=== PATIENT | male | born 1960 | race Caucasian/White ===

== ENCOUNTER 2024-05-14 13:10 | Outpatient (RCR) | payer BC, SELFPAY ==
--- NOTE | 2024-05-14 16:28 | CTCCONSULT_ITS ---
[facility] [address] [place], [place] [address] Consultation Note Date: 05/14/2024 MR#: [id number] Name: WEN CHRISTIAN : 1960 Dx: Malignant neoplasm of rectum. C20 Attending physician. Antonio Watt MD Referring physician. Ramon Ivy MD [facility] Reason for consultation. Patient with pN2X rectal CA removed by transanal resection referred for postop adjuvant therapy. History of Present Illness: Patient is a 63-year-old gentleman initially followed in [place] for high-grade dysplasia in colonic adenoma, with numerous polyps removed, the larger 3 cm lesion in the rectum was biopsied which showed possible intramucosal adenocarcinoma. Was reevaluated at [facility] [place] by Dr. Ramon Ivy MD who underwent on February 27, 2024 excision of rectal tumor transanal endoscopic microsurgical approach including muscularis propria. Final path revealed invasive moderately to poorly differentiated adenocarcinoma arising from tubular adenoma carcinoma focally invading the musculus propria pT2. Lymphovascular invasion present tumor budding score intermediate margins negative for invasive carcinoma and adenoma. Mismatch repair proteins showed intact nuclear expression indicating low likelihood of microsatellite instability. Patient had preop CT scan 01/17/2024 which revealed few pulmonary nodules scar throughout lungs largest 1.1 x 0.9 cm, with no other suspicious areas in abdomen or pelvis. Mild nonspecific rectal wall thickening in the lower rectum with right kidney surgically absent. Spoke with Dr. Ivy today who recommended radiation therapy and chemo based on NCCN guidelines. Past Medical History: Prior right nephrectomy for early stage right kidney cancer [facility] 10 years ago no adjuvant therapy given; prior bronchitis ear infections heart murmur influenza Meds. Cialis levocetirizine Singulair testosterone injections Family history. 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 Social drinker non-smoker Review of Systems: Able to have erectile function with aid of Cialis and testosterone injections. He has regular bowel function Physical Exam: General: Well-appearing gentleman in no acute distress HEENT: Atraumatic normocephalic extraocular is intact no oral lesion no cervical or supraclavicular adenopathy CV: Chest clear to auscultation heart regular rate and rhythm ABD: Soft no organomegaly or tenderness EXT: No signs of clubbing or edema Assessment:1. pT2 NX rectal CA moderate to poorly differentiated with lymphovascular present perineural invasion margins negative. Removed by transanal approach, [facility] [place] [place] Dr. Ramon vIy. 2. Spoke with Dr. Ivy who recommends pelvis radiation and radiosensitizer such as 5-FU recommended by NCCN guidelines. 3. Shall order PET scan as recommended by radiologist to evaluate lesions in the chest. 4. If no sign of distant mets, 5000 cGy to the tumor site and rectum with lower dose to the adjacent node bearing signs will be planned. VMAT should assure reducing side effects with more effective treatment of the areas at risk. 5. Dr. Chambers medical oncologist will see patient soon. 6. Thank you very much for allowing me to evaluate this patient. Cc: Ramon Russ [facility] Antonio Watt MD Electronically signed by: Jerson Miller MD, DABR 05/14/2024 4:26 PM
== END 2024-05-16 23:59 | disposition home or self-care (01) ==
LOC: SCTC 13:10
PROVIDERS: PCP Nurse Practitioner Family; Referring Provider Colon & Rectal Surgery; Visit Provider Radiology Therapeutic Radiology
DX: C20 Malignant neoplasm of rectum (principal); Z90.49 Acquired absence of other specified parts of digestive tract
CPT/HCPCS: 99213; G0463

== ENCOUNTER 2024-05-21 09:03 | Outpatient (RCR) | payer BC, SELFPAY ==
--- NOTE | 2024-05-22 05:41 | CTCCONSULT_ITS ---
Patient: WEN CHRISTIAN : 1960 MR#: [id number] Page 3 of 4 CONSULTATION NOTE DATE OF CONSULTATION: 05/21/2024 NAME: WEN CHRISTIAN ACCOUNT: [id number] : 1960 AGE: 63 REFERRING PHYSICIAN: Wagner Contreras MD PRIMARY PHYSICIAN: Wagner Contreras MD REASON FOR VISIT: Follow-up on rectal cancer ONCOLOGY HISTORY: DIAGNOSIS: Malignant neoplasm of rectum [ICD10] C20 DATE OF DIAGNOSIS: 01/23/2024 adenocarcinoma of colon diagnosed on colonoscopy STAGE/TNM: T2 N0 M0(as no lymph nodes were seen by the surgeon which were normal and none were removed) TREATMENT HISTORY: Care?Plan Start?Date Cycle Day Intent HISTORY OF PRESENT ILLNESS: 63-year-old male is here to establish care for his rectal cancer. Patient underwent a robotic right nephrectomy with Dr. Sy for tumor about 10 years ago. Underwent recent colonoscopy which showed numerous polyps largest 3 cm lesion in the rectum was biopsied only which showed high-grade dysplasia with possible intramucosal adenocarcinoma. Patient had a CT scan which showed no evidence of metastatic disease. Patient had a small cyst in the liver. MRI pelvis showed a lesion on the left lateral aspect of the distal rectum 3 cm from the sphincter read as T3. No enlarged or suspicious lymph nodes on the read but surgeons are few visible less than 5 mm few.Left lateral tumor with central ulceration. 0n ultraSUund majority seems T1, with perhaps slight areaiin the middle of T2 involvemmnt. LocatiOn is adjacent to coceyx below lst valve of Renteria on left lateral zspcct of rectal well, about 1 cm ab0ve upper border of levator. No suspicious lymph nodes and no evidence of T3 involvement. So proce eded with transanal TAMIS excision (full thickness). Some bleeding from posterior area controlled with ligasure. Defect left open to heal by secondary intention. The specimen displays a 2.5 x 2.2 cm fungating lesion with elewted edges. The tumor IS disrupted at the left/anterior aspect, and abuts the inked gmen margin near the proximal aspect. The specimen is serially sectioned from proximal to distal. and entirely submitted as follows}:DIAGNOSIS: (Veri?ed) E TRANSANAL acrsron or: RECTAL LESION MINIMALLY INVASIVE A. Recrosremoro COLON POLYPS (BIOPSY): - Hypemlastic polyp(8)- l B. RECTAL LESION (TRANSANAL EXCISION): - Imasive moderately to poody differentiated adenocarcinOma. an?sing from tubular adenoma. - The carcinoma focally inwdes the musculan's propria (p12). - Lymphomscular invasion is present (Small vessel and large vessel). - Pen?neural invasion is present. - Tumor budding score: lntemrediate (5-3). - Margins are negative for imesive carcinoma and adenoma. Closest margin to carcinoma is 2 mm from the green lateral inked margin (opposite to the left/anterior half. near proximal).COMMENT: 1 WW % lmmunohistochemical stains (block B4) (or mismatch repair proteins (MLH1. PMSZ. MSH2. MSHS) show intact n uclear expression. indicating a low likelihood o?microsatellite instability. Radiation oncology note--- Patient is a 63 -year-old gentleman initially followed in [place] for high-grade dysplasia in colonic adenoma, with numerous polyps removed, the larger 3 cm lesion in the rectum was biopsied which showed possible intramucosal adenocarcinoma. Was reevaluated at [facility] [place] by Dr. Ramon Ivy MD who underwent on February 27, 2024 excision of rectal tumor transanal endoscopic microsurgical approach including muscularis propria. Final path revealed invasive moderately to poorly differentiated adenocarcinoma arising from tubular adenoma carcinoma focally invading the musculus propria pT2. Lymphovascular invasion present tumor budding score intermediate margins negative for invasive carcinoma and adenoma. Mismatch repair proteins showed intact nuclear expression indicating low likelihood of microsatellite instability. Patient had preop CT scan 01/17/2024 which revealed few pulmonary nodules scar throughout lungs largest 1.1 x 0.9 cm, with no other suspicious areas in abdomen or pelvis. Mild nonspecific rectal wall thickening in the lower rectum with right kidney surgically absent. Spoke with Dr. Ivy today who recommended radiation therapy and chemo based on NCCN guidelines. Past Medical History: Prior right nephrectomy for early stage right kidney cancer [facility] 10 years ago no adjuvant therapy given; prior bronchitis ear infections heart murmur in?uenza Meds. 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 Tobacco?Pack?per?Day:?0 Tobacco?Use?Years:?40 ETOH Use:?SOCIAL DRINKER PREFERENCE WHISKEY Drug?Note:?DENIES Social?History?Note:?LIVES?WITH? MEDICATIONS: 1. Cialis - 5 mg As directed 2. levocetirizine dihydrochloride - 5 mg Daily 3. Singulair - As directed 4. Xyosted - Weekly Medications Last Reconciled by Ludy Ames LVN on 05/19/2024 ALLERGIES: No Known Drug Allergies REVIEW OF SYSTEMS: A complete 14-point review of systems was performed and is negative except as noted in interval history. PHYSICAL EXAMINATION: VITAL SIGNS: Temperature?99, B/P?138/88, Height?71?inches, Oxygen?Saturation?95% Weight?224?lbs (Change?since?05/14/24:?0?lbs) PAIN: 0 - No pain ECOG Performance Status: 0 - Asymptomatic and fully active GENERAL APPEARANCE: Appears well, in no apparent distress, appropriately interactive. HEENT: Normocephalic, no temporal wasting, normal conjunctiva, no scleral icterus, normal hearing, lips without lesions, neck normal range of motion. CARDIOVASCULAR: Not assessed. PULMONARY: Normal respiratory effort, no respiratory distress or use of accessory muscles, speaking in full sentences, no tachypnea. EXTREMITIES: No pedal edema or cyanosis. SKIN: Normal skin appearance. NEUROLOGIC: Alert and oriented x4. PSHYCHIATRIC: Appropriate affect, mood normal, behavior normal, intact thought and speech. LABORATORY DATA: I have personally reviewed and interpreted each of the patient?s relevant lab tests, abnormal findings are below: Date ASSESSMENT/PLAN: Cancer T2 N0 M0 Patient had surgery in January 2024 Have recovered well Patient is very hesitant to get any chemotherapy or radiation at this time Patient want to follow PET CT scan and decide on treatment Will get new data to see any residual tumor CBC CMP PET CT scan material ordered still waiting for approval from the insurance on PET CT scan Discussed benefits of chemotherapy CBC CMP PET CT scan in detail testing CEA RETURN TO CLINIC: 1 to 2 weeks with the results BILLING AND COMPLIANCE: I reviewed external records from providers outside my specialty as summarized above. I spent a total of 50 minutes on this patient?s care on the day of their visit excluding time spent related to any billed procedures. This time includes time spent with the patient as well as time spent documenting in the medical record, reviewing patients records and tests, obtaining history, placing orders, communicating with other healthcare professionals, counseling the patient, family or caregiver, and/or care coordination for the diagnoses above. Electronically Signed by: Colten Chambers MD T: 5:39 AM CC: PCP: Wagner Cnotreras Referring: Wagner Contreras This document was completed utilizing speech recognition software. Grammatical errors, random word insertions, pronoun errors, and incomplete sentences are an occasional consequence of this system due to software limitations, ambient noise, and hardware issues. Any formal questions or concerns about the content, text or information contained within the body of this dictation should be directly addressed to the provider for clarification.
== END 2024-06-13 23:59 | disposition home or self-care (01) ==
LOC: SCTC 09:03
PROVIDERS: PCP Nurse Practitioner Family; Referring Provider Nurse Practitioner Family; Visit Provider Internal Medicine Hematology & Oncology
DX: C20 Malignant neoplasm of rectum (principal)
CPT/HCPCS: 99213; G0463

== ENCOUNTER → 2024-05-30 | Outpatient (CLI) | payer BC, SELFPAY ==
[2024-05-30 08:55] LABS: Misc Send Out* See Sep Rpt
[2024-05-30 09:23] LABS: Basophils # (Auto) 0.1 Thou/mm3 (0.0-0.2); Basophils % (Auto) 1 % (0-2.5); Eosinophils # (Auto) 0.1 Thou/mm3 (0.0-0.5); Eosinophils % (Auto) 2 % (0-10); Hematocrit 48.9 % (41.0-53.0); Hemoglobin 16.6 g/dL (13.5-16.0); Immature Granulocytes % (Auto) 0 % (0-0); Immature Granulocytes Auto 0.02 Thou/mm3 (0.00-0.00); Lymphocytes # (Auto) 3.2 Thou/mm3 (1.0-4.8); Lymphocytes % (Auto) 45 % (10-50); Mean Corpuscular HGB Conc 33.9 g/dl (31.0-37.0); Mean Corpuscular Hemoglobin 30.2 pg (25.0-35.0); Mean Corpuscular Volume 89 fL (80-100); Monocytes # (Auto) 0.6 Thou/mm3 (0.0-0.8); Monocytes % (Auto) 8 % (0-12); Neutrophils # (Auto) 3.2 Thou/mm3 (1.8-7.7); Neutrophils % (Auto) 44 % (37-80); Nucleated Red Blood Cell % 0 /100 WBC (0); Platelet Count 283 Thou/mm3 (140-440); RDW Standard Deviation 43.3 fL (35.1-43.9); Red Blood Count 5.49 Miln/mm3 (4.50-5.90); White Blood Count 7.2 Thou/mm3 (3.8-10.6)
[2024-05-30 09:35] LABS: Carcinoembryonic Antigen 1.7 ng/mL (0.0-5.0)
[2024-05-30 09:38] LABS: Alanine Aminotransferase 22 U/L (10-49); Albumin/Globulin Ratio 2.2 (1.2-2.2); Alkaline Phosphatase 65 U/L (46-116); Anion Gap 8 (7-16); Aspartate Amino Transferase 19 U/L (0-34); BUN/Creatinine Ratio 14 Ratio (12-20); Bilirubin,Total 0.5 mg/dL (0.3-1.2); Blood Urea Nitrogen 17 mg/dL (9-23); Calcium 10.5 mg/dL (8.3-10.6); Calcium (Corrected) 10.5 mg/dL (8.5-10.1); Carbon Dioxide 28.8 mMol/L (20.0-31.0); Chloride 105 mMol/L (98-107); Creatinine (Component) 1.2 mg/dL (0.6-1.3); Globulin 2.3 gm/dL (2.3-3.5); Glucose 91 mg/dL (74-106); Osmolality,Calculated 284 (275-295); Potassium 4.6 mMol/L (3.4-5.1); Sodium 142 mMol/L (136-145); Total Protein 7.3 gm/dL (5.7-8.2); eGFR > 60 See Note
== END | disposition home or self-care (01) ==
PROVIDERS: PCP Specialist; Referring Provider Internal Medicine Hematology & Oncology; Visit Provider Internal Medicine Hematology & Oncology
DX: C20 Malignant neoplasm of rectum (principal)
CPT/HCPCS: 36415; 80053; 82378; 85025

== ENCOUNTER → 2024-06-09 | Outpatient (CLI) | payer BC, SELFPAY ==
--- NOTE | 2024-06-09 14:00 | XR_ITS ---
EXAMINATION: PET/CT FUSION SKULL TO THIGH EXAM DATE AND TIME: June 09, [address] urogram January 23, 2017 Indications: Diagnosis staging prior to treatment: Rectal cancer CTDI:vol (mGy) 8.68 DLP: (mGycm) 900.59 PROCEDURE: 16.26 mCi FDG was administered intravenously To allow for distribution and uptake of radiotracer, the patient was allowed to rest quietly in a shielded room. Imaging was performed on an integrated 16-slice PET/CT scanner, with scanning from the skull base to the mid thigh. Serum blood glucose at the time of the injection was measured 102 mg/dL. CT scanning was performed without oral or intravenous contrast material. FINDINGS: Head and Neck: There is no gurpreet hypermetabolism in the neck. The visualized portions of the brain are normal in appearance on CT. Chest: 15 mm spiculated non hypermetabolic pulmonary nodule right upper lobe image 79 8 mm pulmonary nodule non hypermetabolic right lower lobe image 114 Abdomen and Pelvis: There is no gurpreet hypermetabolism in retroperitoneal or pelvic chains. The spleen is normal in size and FDG avidity. Absent right kidney Musculoskeletal: Marrow uptake is within normal range. IMPRESSION: Noncalcified pulmonary nodules as above suspicious for pulmonary nodular metastatic disease or lung carcinoma, recommend high-resolution CT chest without contrast follow-up
== END | disposition home or self-care (01) ==
PROVIDERS: PCP Nurse Practitioner Family; Referring Provider Radiology Therapeutic Radiology; Visit Provider Radiology Therapeutic Radiology
DX: R91.8 Other nonspecific abnormal finding of lung field (principal); C20 Malignant neoplasm of rectum
CPT/HCPCS: 78815; A9552

== ENCOUNTER → 2024-06-14 | Outpatient (CLI) | payer BC, SELFPAY ==
--- NOTE | 2024-06-14 08:00 | XR_ITS ---
Examination: MRI pelvis with intravenous contrast. MRI pelvis without intravenous contrast. Date and time of exam: June 14, 2024 0833 hrs. Indications: History kidney surgery nephrectomy 2017, history rectal cancer diagnosis March 2024 Technique: Multiple axial, sagittal and coronal sections of the pelvis obtained. Transverse images, TR 6020, TE 107. T1 weighted transverse images, TR 582, TE 9.5. T2-weighted sagittal images, TR 4000, TE 105. T2-weighted sagittal images, TR 4000, TE 5. Coronal images, TR 4210, TE 107. Axial and coronal images are obtained post 5 cc intravenous injection, gadolinium. Findings: No common iliac and external iliac internal iliac or common femoral significant adenopathy No free fluid in the pelvis Normal seminal vesicles Transverse prostate dimension 4.5 cm Postcontrast images demonstrate mild thickening of the right lateral rectal wall, axial image 22, measuring 10 mm, clinical correlation advised Fat plane remains at the anterior margin of the rectosigmoid, no perirectal lymph nodes Urinary bladder intact Normal osseous signal Impression: No pelvic lymphadenopathy Mild thickening of the right lateral rectal wall, axial image 22 postcontrast, measuring 10 mm, clinical correlation advised
== END | disposition home or self-care (01) ==
LOC: SMRI 07:36
PROVIDERS: PCP Nurse Practitioner Family; Referring Provider Internal Medicine Hematology & Oncology; Visit Provider Internal Medicine Hematology & Oncology
DX: K62.89 Other specified diseases of anus and rectum (principal); C20 Malignant neoplasm of rectum
CPT/HCPCS: 72197; A9579

== ENCOUNTER 2024-06-18 10:50 | Outpatient (RCR) | payer BC, SELFPAY ==
--- NOTE | 2024-06-22 23:53 | CTCFLWUP_ITS ---
Patient: WEN CHRISTIAN : 1960 Page 3 of 4 FOLLOW UP NOTE DATE OF SERVICE: 06/18/2024 NAME: WEN CHRISTIAN ACCOUNT: [id number] : 1960 AGE: 63 INTERVAL HISTORY: Patient is here to follow-up on his results. Patient is doing well and have no complaints ONCOLOGY HISTORY: DIAGNOSIS: Malignant neoplasm of rectum [ICD10] C20 DATE OF DIAGNOSIS: 01/23/2024 adenocarcinoma of colon diagnosed on colonoscopy STAGE/TNM: T2 Nx M0(as no lymph nodes were seen by the surgeon which were normal and none were removed) TREATMENT HISTORY: Care?Plan Start?Date Cycle Day Intent HISTORY OF PRESENT ILLNESS: 63-year-old male is here to establish care for his rectal cancer. Patient underwent a robotic right nephrectomy with Dr. Sy for tumor about 10 years ago. Underwent recent colonoscopy which showed numerous polyps largest 3 cm lesion in the rectum was biopsied only which showed high-grade dysplasia with possible intramucosal adenocarcinoma. Patient had a CT scan which showed no evidence of metastatic disease. Patient had a small cyst in the liver. MRI pelvis showed a lesion on the left lateral aspect of the distal rectum 3 cm from the sphincter read as T3. No enlarged or suspicious lymph nodes on the read but surgeons are few visible less than 5 mm few.Left lateral tumor with central ulceration. 0n ultraSUund majority seems T1, with perhaps slight areaiin the middle of T2 involvemmnt. LocatiOn is adjacent to coceyx below lst valve of Renteria on left lateral zspcct of rectal well, about 1 cm ab0ve upper border of levator. No suspicious lymph nodes and no evidence of T3 involvement. So proce eded with transanal TAMIS excision (full thickness). Some bleeding from posterior area controlled with ligasure. Defect left open to heal by secondary intention. The specimen displays a 2.5 x 2.2 cm fungating lesion with elewted edges. The tumor IS disrupted at the left/anterior aspect, and abuts the inked gmen margin near the proximal aspect. The specimen is serially sectioned from proximal to distal. and entirely submitted as follows}:DIAGNOSIS: (Veri?ed) E TRANSANAL acrsron or: RECTAL LESION MINIMALLY INVASIVE A. Recrosremoro COLON POLYPS (BIOPSY): - Hypemlastic polyp(8)- l B. RECTAL LESION (TRANSANAL EXCISION): - Imasive moderately to poody differentiated adenocarcinOma. an?sing from tubular adenoma. - The carcinoma focally inwdes the musculan's propria (p12). - Lymphomscular invasion is present (Small vessel and large vessel). - Pen?neural invasion is present. - Tumor budding score: lntemrediate (5-3). - Margins are negative for imesive carcinoma and adenoma. Closest margin to carcinoma is 2 mm from the green lateral inked margin (opposite to the left/anterior half. near proximal).COMMENT: 1 WW % lmmunohistochemical stains (block B4) (or mismatch repair proteins (MLH1. PMSZ. MSH2. MSHS) show intact n uclear expression. indicating a low likelihood o?microsatellite instability. Radiation oncology note--- Patient is a 63 -year-old gentleman initially followed in [place] for high-grade dysplasia in colonic adenoma, with numerous polyps removed, the larger 3 cm lesion in the rectum was biopsied which showed possible intramucosal adenocarcinoma. Was reevaluated at [facility] [place] by Dr. Ramon Ivy MD who underwent on February 27, 2024 excision of rectal tumor transanal endoscopic microsurgical approach including muscularis propria. Final path revealed invasive moderately to poorly differentiated adenocarcinoma arising from tubular adenoma carcinoma focally invading the musculus propria pT2. Lymphovascular invasion present tumor budding score intermediate margins negative for invasive carcinoma and adenoma. Mismatch repair proteins showed intact nuclear expression indicating low likelihood of microsatellite instability. Patient had preop CT scan 01/17/2024 which revealed few pulmonary nodules scar throughout lungs largest 1.1 x 0.9 cm, with no other suspicious areas in abdomen or pelvis. Mild nonspecific rectal wall thickening in the lower rectum with right kidney surgically absent. Spoke with Dr. Ivy today who recommended radiation therapy and chemo based on NCCN guidelines. 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 Tobacco?Pack?per?Day:?0 Tobacco?Use?Years:?40 ETOH Use:?SOCIAL DRINKER PREFERENCE WHISKEY Drug?Note:?DENIES Social?History?Note:?LIVES?WITH? MEDICATIONS: 1. Cialis - 5 mg As directed 2. levocetirizine dihydrochloride - 5 mg Daily 3. multivitamin - 1 Gum Daily 4. Singulair - As directed 5. Xyosted - Weekly Medications Last Reconciled by Annabelle Taylor MA on 06/18/2024 ALLERGIES: No Known Drug Allergies REVIEW OF SYSTEMS: A complete 14-point review of systems was performed and is negative except as noted in interval history. PHYSICAL EXAMINATION: VITAL SIGNS: PAIN: 0 - No pain ECOG Performance Status: 0 - Asymptomatic and fully active GENERAL APPEARANCE: Appears well, in no apparent distress, appropriately interactive. HEENT: Normocephalic, no temporal wasting, normal conjunctiva, no scleral icterus, normal hearing, lips without lesions, neck normal range of motion. CARDIOVASCULAR: Not assessed. PULMONARY: Normal respiratory effort, no respiratory distress or use of accessory muscles, speaking in full sentences, no tachypnea. EXTREMITIES: No pedal edema or cyanosis. SKIN: Normal skin appearance. NEUROLOGIC: Alert and oriented x4. PSHYCHIATRIC: Appropriate affect, mood normal, behavior normal, intact thought and speech. LABORATORY DATA: I have personally reviewed and interpreted each of the patient?s relevant lab tests, abnormal findings are below: Date 05/30/24 ??CEA?(O*)?(ng/ml) 1.7 ASSESSMENT/PLAN: Rectal cancer T2 N0 M0 Patient had surgery in January 2024 Have recovered well I reviewed PET CT scan with Mr. Christian and MRI of the pelvis No evidence of tumor N/A TER RA test negative showing likely no minimal residual disease Patient was referred for chemo RT as no lymph nodes could be removed and margins were close Patient also had perivascular and perineural invasion and surgeon recommended chemo RT and adjuvant setting Will place chemotherapy orders ORDERS: Chemo orders CBC CMP RETURN TO CLINIC: 6 weeks BILLING AND COMPLIANCE: I reviewed external records from providers outside my specialty as summarized above. I spent a total of 50 minutes on this patient?s care on the day of their visit excluding time spent related to any billed procedures. This time includes time spent with the patient as well as time spent documenting in the medical record, reviewing patients records and tests, obtaining history, placing orders, communicating with other healthcare professionals, counseling the patient, family or caregiver, and/or care coordination for the diagnoses above. Electronically Signed by: Colten Chambers MD T: 11:51 PM CC: PCP: Wagner Contreras Referring: Wagner Contreras This document was completed utilizing speech recognition software. Grammatical errors, random word insertions, pronoun errors, and incomplete sentences are an occasional consequence of this system due to software limitations, ambient noise, and hardware issues. Any formal questions or concerns about the content, text or information contained within the body of this dictation should be directly addressed to the provider for clarification.
--- NOTE | 2024-07-04 08:24 | CTCTXPLN_ITS ---
[facility] [address] [place], [place] [address] Physician Clinical Treatment Planning Note Date of Service: 07/04/2024 Name: WEN ANAHI ChanelB.: 1960 The patient has agreed to proceed with Radiation therapy. Tests and supporting medical records were interpreted to assist in defining the tumor location and extent of disease. Further imaging will be necessary to contour and delineate the volume to which the XRT will be provided. A. Treatment Intent: Curative B. Modality: 10 MV C. Requested Technique: VMAT D. Treatment Site: Pelvis E. Critical structures to be contoured on plan: F. In order to accomplish this plan, I am ordering/Prescribing the followin. Simulations (s) will be performed to accomplish a reproducible treatment position, to determine optimal treatment portals/beam arrangements, to design beam modifying devices and verify treatment portals on patient prior to the commencement of Radiation Therapy. Vac-Rebeca 2. Devices; for immobilization and beam shapin. CT Guidance for placement of XRT villegas Scan area: 4. Portal images Frequency: 5. Invivo transit dose measurement once per week on all VMAT patients. 6. Special Physics Consult Requested for: 7. Other requests: Special procedure chemoradiation G. Dose Objectives: Curative Electronically signed by: Jerson Miller M.D. 07/04/2024 8:22 AM
--- NOTE | 2024-07-04 08:27 | CTCTXPLNST_ITS ---
Radiation Oncology Treatment Planning Sheet Name: WEN CHRISTIAN MR#: [id number] : 1960 Dx: C20 Malignant neoplasm of rectum Date of Service: 07/04/2024 Account #: ?? Pt Treatment Intent: curative palliative other: Stage: Procedure CPT # Ordered Spec. Procedure 94014 1 Molina Complex (set-up) 19961 Pelvis 1 Molina Simple 50832 IMRT Plan 37127 1 MLC Devices VMAT 10367 3 Molina 3 D 26168 TRTMT dev Complex 78210 Vac-Rebeca 1 TRTMT dev simple 94007 Basic Philip 84358 9 Special Dosimetry 19288 Spec Physics 78699 Port Films 51913 SRS Cranial/1FX 48189 SBR 5 FX or Less /ex: 5 = 5 fx 70722 IMRT Simple 36482 5000 25 IMRT Complex 84942 IGRT 17435 22 Rad del com 6-10 67278 Rad del com 11-19 42959 Cont Med Physics 16965 5 Treatment Planning 58486 1 Rad del com 20 mev 50209 Rad del inter 6-10 75649 Rad del inter 11-19 16660 Rad del simple 6-10 30594 Rad del simple 11-19 20117 Special Port Plan 45356 TRTMT dev inter 66669 Isodose Complex 77642 Isodose simple 93673 Resp Motion Mgmt Simulation 20416 Placement of Fiducial Markers 77299 Electronically Signed By: Jerson Miller MD, DABR 07/04/2024 8:24 AM
== END 2024-07-14 23:59 | disposition home or self-care (01) ==
LOC: SCTC 10:50
PROVIDERS: PCP Nurse Practitioner Family; Referring Provider Nurse Practitioner Family; Visit Provider Internal Medicine Hematology & Oncology
DX: C20 Malignant neoplasm of rectum (principal)
CPT/HCPCS: 99212; G0463

== ENCOUNTER 2024-09-22 13:21 | Outpatient (RCR) | payer BC, SELFPAY ==
--- NOTE | 2024-09-25 07:03 | CTCFLWUP_ITS ---
Patient: WEN CHRISTIAN : 1960 Page 3 of 6 FOLLOW UP NOTE DATE OF SERVICE: 09/22/2024 NAME: WEN CHRISTIAN ACCOUNT: [id number] : 1960 AGE: 63 INTERVAL HISTORY: Chief Complaint Follow-up for lung nodule biopsy results, discussion of kidney cancer metastasis to lung History of Present Illness Amado Smith is a 63-year-old male with a history of renal cell carcinoma status post nephrectomy 12-15 years ago and recent rectal cancer status post surgery, presenting for follow-up of lung nodules discovered on imaging. The patient was recently found to have multiple lung nodules on CT scan performed in January 2024. A biopsy of a right lung nodule was positive for carcinoma, with immunohistochemistry suggesting metastasis from renal primary. The patient reports no specific symptoms related to these nodules. He had pr eviously undergone a robotic nephrectomy for renal tumor approximately 10-12 years ago. Regarding his rectal cancer history, the patient reports he has recovered well from the facial surgery. He declined recommended chemoradiation treatment following surgery, as his Netera test was negative. A recent colonoscopy revealed numerous polyps. The patient expresses a preference to avoid putting poison in my body unless absolutely necessary, referring to chemotherapy. The patient is planning a trip to [place] for a surprise birthday constitution party at the end of the month and will return in early October. He reports no new symptoms or concerns at this time. ONCOLOGY HISTORY:?[facility] On[facility] Hx? DIAGNOSIS: Malignant neoplasm of rectum [ICD10] C20 DATE OF DIAGNOSIS: 01/23/2024 adenocarcinoma of colon diagnosed on colonoscopy STAGE/TNM: T2 Nx M0(as no lymph nodes were seen by the surgeon which were normal and none were removed) TREATMENT HISTORY: Care?Plan Start?Date Cycle Day Intent Pembrolizumab?alone 09/22/2024 1 21 Palliative HISTORY OF PRESENT ILLNESS: 63-year-old male is here to establish care for his rectal cancer. Patient underwent a robotic right nephrectomy with Dr. Sy for tumor about 10 years ago. Underwent recent colonoscopy which showed numerous polyps largest 3 cm lesion in the rectum was biopsied only which showed high-grade dysplasia with possible intramucosal adenocarcinoma. Patient had a CT scan which showed no evidence of metastatic disease. Patient had a small cyst in the liver. MRI pelvis showed a lesion on the left lateral aspect of the distal rectum 3 cm from the sphincter read as T3. No enlarged or suspicious lymph nodes on the read but surgeons are few visible less than 5 mm few.Left lateral tumor with central ulceration. 0n ultraSUund majority seems T1, with perhaps slight areaiin the middle of T2 involvemmnt. LocatiOn is adjacent to coceyx below lst valve of Renteria on left lateral zspcct of rectal well, about 1 cm ab0ve upper border of levator. No suspicious lymph nodes and no evidence of T3 involvement. So proce eded with transanal TAMIS excision (full thickness). Some bleeding from posterior area controlled with ligasure. Defect left open to heal by secondary intention. The specimen displays a 2.5 x 2.2 cm fungating lesion with elewted edges. The tumor IS disrupted at the left/anterior aspect, and abuts the inked gmen margin near the proximal aspect. The specimen is serially sectioned from proximal to distal. and entirely submitted as follows}:DIAGNOSIS: (Veri?ed) E TRANSANAL acrsron or: RECTAL LESION MINIMALLY INVASIVE A. Recrosremoro COLON POLYPS (BIOPSY): - Hypemlastic polyp(8)- l B. RECTAL LESION (TRANSANAL EXCISION): - Imasive moderately to poody differentiated adenocarcinOma. an?sing from tubular adenoma. - The carcinoma focally inwdes the musculan's propria (p12). - Lymphomscular invasion is present (Small vessel and large vessel). - Pen?neural invasion is present. - Tumor budding score: lntemrediate (5-3). - Margins are negative for imesive carcinoma and adenoma. Closest margin to carcinoma is 2 mm from the green lateral inked margin (opposite to the left/anterior half. near proximal).COMMENT: 1 WW % lmmunohistochemical stains (block B4) (or mismatch repair proteins (MLH1. PMSZ. MSH2. MSHS) show intact n uclear expression. indicating a low likelihood o?microsatellite instability. Radiation oncology note--- Patient is a 63 -year-old gentleman initially followed in [place] for high-grade dysplasia in colonic adenoma, with numerous polyps removed, the larger 3 cm lesion in the rectum was biopsied which showed possible intramucosal adenocarcinoma. Was reevaluated at [facility] [place]. Ramon Ivy MD who underwent on February 27, 2024 excision of rectal tumor transanal endoscopic microsurgical approach including muscularis propria. Final path revealed invasive moderately to poorly differentiated adenocarcinoma arising from tubular adenoma carcinoma focally invading the musculus propria pT2. Lymphovascular invasion present tumor budding score intermediate margins negative for invasive carcinoma and adenoma. Mismatch repair proteins showed intact nuclear expression indicating low likelihood of microsatellite instability. Patient had preop CT scan 01/17/2024 which revealed few pulmonary nodules scar throughout lungs largest 1.1 x 0.9 cm, with no other suspicious areas in abdomen or pelvis. Mild nonspecific rectal wall thickening in the lower rectum with right kidney surgically absent. Spoke with Dr. Ivy today who recommended radiation therapy and chemo based on NCCN guidelines. OTHER MEDICAL HISTORY/CONDITIONS: HEART MURMUR SEASONAL ALLERGIES BRONCHITIS HERNIA NEPHRECTOMY FLU CHICKEN POX HAY FEVER EAR INFECTIONS ROTATOR CUFF HERNIA RIGHT NEPHRECTOMY RIGHT 8 YEARS AGO RIGHT EAR SX WITH DR ELDRIDGE FAMILY HISTORY: Father:?FATHER?BRAIN?CANCER Cancer History:?COLON CANCER DX 01/2024, LIP SX SQUAMOUS CELL YEARS AGO SOCIAL HISTORY: Occupational?History:?RETIRED [employer], [employer] Education?Level:?College Graduate, 2 year degree Marital?Status:? Tobacco?Pack?per?Day:?0 Tobacco?Use?Years:?40 ETOH Use:?SOCIAL DRINKER [employer]REF[employer]ENCE [employer]KEY Drug?Note:?DENIES Social?History?Note:?LIVES?WITH? MEDICATIONS: 1. Cialis - 5 mg As directed 2. levocetirizine dihydrochloride - 5 mg Daily 3. multivitamin - 1 Gum Daily 4. Singulair - As directed 5. Xyosted - Weekly?Palabra Meds? Medications Last Reconciled by Annabelle Taylor MA on 06/18/2024 ALLERGIES: No Known Drug Allergies REVIEW OF SYSTEMS: A complete 14-point review of systems was performed and is negative except as noted in interval history. PHYSICAL EXAMINATION:?[facility] PE? VITAL SIGNS: B/P?151/81, Oxygen?Saturation?96% Weight?220?lbs PAIN: 0 - No pain ECOG Performance Status: 0 - Asymptomatic and fully active GENERAL APPEARANCE: Appears well, in no apparent distress, appropriately interactive. HEENT: Normocephalic, no temporal wasting, normal conjunctiva, no scleral icterus, normal hearing, lips without lesions, neck normal range of motion. CARDIOVASCULAR: Not assessed. PULMONARY: Normal respiratory effort, no respiratory distress or use of accessory muscles, speaking in full sentences, no tachypnea. EXTREMITIES: No pedal edema or cyanosis. SKIN: Normal skin appearance. NEUROLOGIC: Alert and oriented x4. PSHYCHIATRIC: Appropriate affect, mood normal, behavior normal, intact thought and speech. Laboratory, Imaging, and Diagnostic Test Results - Biopsy of right lung nodule: Positive for carcinoma, consistent with metastasis from renal primary - Immunohistochemistry results: - Positive: Goodman-CK, RCC, CD10, Pax8 - Negative: TTF1, CK7, CK20, Melan-A, SOX10, NKX3.1 - CT scan (January 2024): - Right lun.9 cm nodule with adjacent small satellite nodule, speculations surrounding - Left upper lobe: Irregular 0.9 x 0.7 cm nodule - Right middle lobe: Subpleural triangular nodular opacity, possibly atelectasis - Right lower lobe: Solid non-calcified 0.9 x 0.7 cm nodule - PET scan: - 15 mm non-hypermetabolic mass noted - Netera test for rectal cancer: Negative LABORATORY DATA: I have personally reviewed and interpreted each of the patient?s relevant lab tests, abnormal findings are below: Date 05/30/24 ??WHITE?BLOOD?COUNT?(Thou/mm3) 7.2 ??RED?BLOOD?COUNT?(Miln/mm3) 5.49 ??HEMOGLOBIN?(gm/dl) 16.6?H ??HEMATOCRIT?(%) 48.9 ??PLATELET?COUNT?(Thou/mm3) 283 ??NEUTROPHILS?%,?AUTO?(%) 44 ??LYMPH?%,?AUTO?(%) 45 ??NEUTROPHILS,?AUTO?(Thou/mm3) 3.2 ??GLUCOSE,RANDOM?(mg/dL) 91 ??BLOOD?UREA?NITROGEN?(mg/dL) 17 ??CREATININE?(mg/dL) 1.20 ??SODIUM?(mmol/L) 142 ??POTASSIUM?(mmol/L) 4.6 ??CHLORIDE?(mmol/L) 105 ??CrCl?(CandG)?(ml/min) 77.15 ??AST/SGOT?(Unit/L) 19 ??ALT/SGPT?(Unit/L) 22 ??ALKALINE?PHOSPHATASE?(Unit/L) 65 ??BILIRUBIN,?TOTAL?(mg/dL) 0.5 ??PROTEIN?TOTAL?(gm/dl) 7.3 ??ALBUMIN,?SERUM?(gm/dl) 5.0?H ??GLOBULIN?(gm/dl) 2.3 ??ALBUMIN/GLOBULIN?RATIO 2.2 ??CALCIUM,?SERUM?(mg/dL) 10.5 ??CALCIUM?SERUM?(CORRECTED)?(mg/dL) 10.5?H ??CEA?(O*)?(ng/ml) 1.7 ASSESSMENT/PLAN: Amado Smith, 63-year-old male with history of renal cell carcinoma s/p nephrectomy 12-15 years ago and recent rectal cancer s/p surgery, presents for follow-up of lung nodules discovered on recent imaging. ?Avis Chambers Assessment/Plan? !)Rectal cancer T2 N0 M0 Patient had surgery in January 2024 Have recovered well N/A TER RA test negative showing likely no minimal residual disease Patient was referred for chemo RT as no lymph nodes could be removed and margins were close Patient also had perivascular and perineural invasion and surgeon recommended chemo RT and adjuvant setting Patient refused chemotherapy at that time Plan: - Continue surveillance with regular ctDNA testing every 3 months - Monitor for any signs or symptoms of recurrence - Reassess need for adjuvant therapy if ctDNA becomes positive or clinical evidence of recurrence develops 2)Metastatic renal cell carcinoma to lung Assessment: Recent CT scan from January 2024 revealed multiple lung nodules, with the largest measuring 0.9 cm. Biopsy of right lung nodule was positive for carcinoma consistent with metastasis from renal primary. Immunohistochemistry was positive for goodman-CK, RCC, CD10, and Pax8, confirming renal cell origin. TGF1, CK7, CK20, Melanin, SOX, and NKX3 were negative. This finding was unexpected, as we were initially concerned about potential metastasis from the patient's recent rectal cancer. The renal cell carcinoma metastasis may have been present for an extended period, possibly since the time of the original nephrectomy 12-15 years ago. Circulating tumor DNA (ctDNA) testing (Biosceptre) for rectal cancer was negative, further supporting that the lung nodules are not of colorectal origin. Plan: - Obtain previous CT scans to assess for presence and growth of lung nodules over time - Schedule follow-up CT scan in October 2024 after patient returns from planned trip - Discuss treatment options: 1. Stereotactic body radiation therapy (SBRT) for lung nodules 2. Immunotherapy with Keytruda (pembrolizumab) - Administer IV every 3 weeks - Discuss potential side effects, including immune-related adverse events - Obtain insurance approval prior to initiating treatment - Recommend lifestyle modifications: - Adopt ketogenic diet - Increase intake of protein-rich vegetables and fruits, - Limit alcohol consumption, tashi once immunotherapy is initiated - patient is very reluctant to put anything toxic in his body .. - he wants to do his ct scan and brain mri before starting therapy and will like to finish his vacation before starting any treatment ORDERS: Order # Description [id number] Follow Up Appointment [id number] CBC + Comprehensive Metabolic Panel + [facility] [id number] Lab Appointment [id number] Follow Up Appointment [id number] CBC + Comprehensive Metabolic Panel + [facility] [id number] Lab Appointment [id number] Follow Up Appointment [id number] CBC + Comprehensive Metabolic Panel + [facility]A [id number] Lab Appointment [id number] Follow Up Appointment [id number] CBC + Comprehensive Metabolic Panel + [facility]A [id number] Lab Appointment [id number] Follow Up Appointment [id number] CBC + Comprehensive Metabolic Panel + CEA [id number] Lab Appointment [id number] Follow Up Appointment [id number] CBC + Comprehensive Metabolic Panel + [facility]A [id number] Lab Appointment [id number] Follow Up Appointment [id number] CBC + Comprehensive Metabolic Panel + CEA [id number] Lab Appointment [id number] Follow Up Appointment [id number] CBC + Comprehensive Metabolic Panel + CEA [id number] Lab Appointment [id number] Follow Up Appointment [id number] CBC + Comprehensive Metabolic Panel + CEA [id number] Lab Appointment [id number] Follow Up Appointment [id number] CBC + Comprehensive Metabolic Panel + CEA [id number] Lab Appointment [id number] Follow Up Appointment [id number] CBC + Comprehensive Metabolic Panel + CEA [id number] Lab Appointment [id number] Follow Up Appointment [id number] CBC + Comprehensive Metabolic Panel + CEA [id number] Lab Appointment [id number] Follow Up Appointment [id number] CBC + Comprehensive Metabolic Panel + CEA [id number] Lab Appointment [id number] Follow Up Appointment [id number] CBC + Comprehensive Metabolic Panel + CEA [id number] Lab Appointment [id number] Follow Up Appointment [id number] CBC + Comprehensive Metabolic Panel + CEA [id number] Lab Appointment [id number] Follow Up Appointment [id number] CBC + Comprehensive Metabolic Panel + CEA [id number] Lab Appointment [id number] Follow Up Appointment [id number] CBC + Comprehensive Metabolic Panel + CEA [id number] Lab Appointment [id number] Follow Up Appointment MD [id number] CBC + Comprehensive Metabolic Panel + CEA [id number] Lab Appointment [id number] Follow Up Appointment MD [id number] CBC + Comprehensive Metabolic Panel + CEA [id number] Lab Appointment [id number] Follow Up Appointment MD [id number] CBC + Comprehensive Metabolic Panel + CEA [id number] Lab Appointment [id number] Follow Up Appointment MD [id number] CBC + Comprehensive Metabolic Panel + CEA [id number] Lab Appointment [id number] Follow Up Appointment MD [id number] CBC + Comprehensive Metabolic Panel + CEA [id number] Lab Appointment [id number] Follow Up Appointment MD [id number] CBC + Comprehensive Metabolic Panel + CEA [id number] Lab Appointment [id number] Follow Up Appointment MD [id number] CBC + Comprehensive Metabolic Panel + [facility]A [id number] Lab Appointment [id number] Follow Up Appointment MD [id number] CBC + Comprehensive Metabolic Panel + CEA [id number] Lab Appointment [id number] Follow Up Appointment MD [id number] CBC + Comprehensive Metabolic Panel + CEA [id number] Lab Appointment [id number] Follow Up Appointment MD RETURN TO CLINIC: BILLING AND COMPLIANCE: I reviewed external records from providers outside my specialty as summarized above. I spent a total of 50 minutes on this patient?s care on the day of their visit excluding time spent related to any billed procedures. This time includes time spent with the patient as well as time spent documenting in the medical record, reviewing patients records and tests, obtaining history, placing orders, communicating with other healthcare professionals, counseling the patient, family or caregiver, and/or care coordination for the diagnoses above. Electronically Signed by: Colten Chambers MD T: 7:00 AM CC: PCP: Wagner Contreras Referring: Wagner Contreras This document was completed utilizing speech recognition software. Grammatical errors, random word insertions, pronoun errors, and incomplete sentences are an occasional consequence of this system due to software limitations, ambient noise, and hardware issues. Any formal questions or concerns about the content, text or information contained within the body of this dictation should be directly addressed to the provider for clarification.
== END 2024-10-13 23:59 | disposition home or self-care (01) ==
LOC: SCTC 13:21
PROVIDERS: PCP Nurse Practitioner Family; Referring Provider Nurse Practitioner Family; Visit Provider Internal Medicine Hematology & Oncology
DX: C20 Malignant neoplasm of rectum (principal); C78.01 Secondary malignant neoplasm of right lung; Z85.528 Personal history of other malignant neoplasm of kidney; Z90.5 Acquired absence of kidney
CPT/HCPCS: 99212; G0463

== ENCOUNTER 2024-10-04 12:05 | Emergency (ER) | payer BC, SELFPAY ==
[2024-10-04] VITALS (7 sets, daily range): BP systolic 108–147; BP diastolic 70–91; PULSE 90–190; RESP 18–19; TEMP 36.7–37; O2SAT 91–95; BMI 31.4
--- NOTE | 2024-10-04 12:06 | EKG_ITS ---
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
--- NOTE | 2024-10-04 12:06 | EDNOTE_ITS ---
ED General RME/HPI General Chief complaint: Arrhythmia/Palpitations Stated complaint: AFIB RVR Time Seen by Provider: 10/04/24 12:06 Arrival date/time: 10/04/24 12:05 RME / HPI RME / HPI narrative: DR. HALLMAN MAIN ED EVALUATION: 63 year old male presents to the Emergency Department [facility] with complaints of chest palpitations, chest pain, and shortness of breath; patient in atrial fibrillation with RVR. No other symptoms reported at this time. Denies blood thinners. Reviewed last oncology note by Dr. Chambers. Patient has history of renal cell carcinoma status post nephrectomy 12-15 years ago and recent rectal cancer status post surgery, presenting for follow-up of lung nodules discovered on imaging. Also, adenocarcinoma of colon diagnosed on colonoscopy on 01/23/2024. Related Data Allergies Allergy/AdvReac Type Severity Reaction Status Date / Time NKA* Allergy Uncoded 05/02/22 16:45 Review of Systems Review of Systems Systems Reviewed: All systems reviewed, normal except as documented Narrative Review of Systems: Constitutional: DENIES: fevers; Eyes: DENIES: loss of vision; Head/Ear/Nose: DENIES: loss of hearing. Throat: DENIES: dysphagia. Cardiovascular: POSITIVES: chest palpitations, chest pain DENIES: chest pain, dyspnea, or syncope. Respiratory: POSITIVES: shortness of breath; Gastrointestinal: DENIES: rectal bleeding or melena. Genitourinary: DENIES: dysuria (painful or difficult urination); Musculoskeletal: DENIES: arthralgia (pain in a joint); Skin: DENIES: rash; Neurological: DENIES: loss of function or movement; Psychiatric: DENIES: recent major life stressor, emotional problem, illicit drug use or abuse; Endocrinology: DENIES: weight change,; Hematologic/Lymphatic: DENIES: abnormal bruising. Allergic/Immunologic: DENIES: urticaria (hives). Past Medical History Surgical History SURGICAL: Positive Nephrectomy (right nephrectomy) Social History SMOKING STATUS: Former smoker Past Medical History Comments PMH COMMENT: Patient has history of renal cell carcinoma status post nephrectomy 12-15 years ago and recent rectal cancer status post surgery, presenting for follow-up of lung nodules discovered on imaging. Also, adenocarcinoma of colon diagnosed on colonoscopy on 01/23/2024. ED Exam Narrative Physical exam: Physical Exam: General: The vital signs were reviewed. Extremely rapid narrow QRS complex at 190 on arrival. There is irregularly irregular suggesting atrial fibrillation. The patient is non-toxic, in no apparent distress and appears healthy with a patent airway, no respiratory distress and has no apparent circulatory problems. Head & Scalp: Normocephalic, atraumatic. Face: Appears normal and is without lesions, deformity. Ears: Left external pinna appears normal. Right external pinna appears normal. Eyes: The sclera is anicteric. No obvious photophobia. The Left and Right Orbit/Lid/Conjunctiva appears normal without swelling, discoloration or injection. Nose: The nose is without deformity, discharge or tenderness; Throat: Appears normal. The mucous membranes are pink and moist without exudates, redness or mass seen. The tongue appears normal. Neck: The neck is supple and no apparent mass or adenopathy. Chest: The chest wall is normal in size and symmetry and has no chest wall tenderness or crepitus. The patient displays normal ventilator effort withou t retractions, accessory muscle use and has adequate air movement bilaterally with no wheezes and no rales. Cardiovascular: Monitor shows A-fib 190 ir regularly irregular regular rate and rhythm; No murmurs, rubs, or gallops; Gastrointestinal: The abdomen appears normal. No obvious hernias or mass. The abdomen is soft and benign, non-distended, with no pain, no guarding and no rebound tenderness. Bowel sounds are present and normal sounding. No CVA tenderness. Genitourinary: Back/Spine: Normal inspection Extremities/Musculoskeletal/lymphatic: The bilateral upper and lower extremities are warm. There is no evidence of arterial insufficiency. There is no evidence of venous insufficiency/edema. The patient spontaneously moves bilateral upper and lower extremities with no pain and no limitation of movement. There is no apparent, injury or trauma. Skin: The skin is warm, dry and intact. No rashes. No petechia. No purpura. No abnormal bruising. The color is appropriate with no cyanosis. Mental status/Psychiatric: Mental status is appropriate for age. The patient has no apparent delusions, visual hallucinations, no apparent audible hallucinations. The patient has no apparent suicidal thoughts/ideation and no apparent homicidal thoughts/ideation. Neurological: The patient is awake, alert, interactive, cordial, cooperative and is oriented to name and situation. The patient follows commands and answers historical question with no impairment. There is no visual disturbance apparent. The pupils are equal and reactive bilaterally with normal eye movements and no diplopia The bilateral upper and lower extremities have normal strength, normal range of motion and normal functioning. The gait, station and balance were not tested due to acuity Course Quality Measures none Orders Category Date Time Status CT Screening NOW Care 10/04/24 13:51 Active EKG (ED ONLY) *Do not use* NOW Care 10/04/24 12:06 Completed EKG (ED ONLY) *Do not use* NOW Care 10/04/24 16:[address] angio chest Stat Exams 10/04/24 13:51 Completed EKG (ED Only) Stat Exams 10/04/24 12:06 Draft EKG (ED Only) Stat Exams 10/04/24 16:32 Draft XR chest 1V portable Stat Exams 10/04/24 12:06 Completed Alcohol, Blood Medical Stat Lab 10/04/24 12:09 Completed B-Type Natriuretic Peptide Stat Lab 10/04/24 12:09 Completed CBC Stat Lab 10/04/24 12:09 Completed Comprehensive Metabolic Panel Stat Lab 10/04/24 12:09 Completed T4 (Thyroxine) Stat Lab 10/04/24 12:09 Completed Thyroid Stimulating Hormone Stat Lab 10/04/24 12:09 Completed Troponin I Stat Lab 10/04/24 12:09 Completed Urinalysis, C/S if Indicated Stat Lab 10/04/24 14:49 Completed Diltiazem Inj [Cardizem Inj] Med 10/04/24 12:06 Discontinued 10 mg IV X1 ONE Diltiazem Inj [Cardizem Inj] Med 10/04/24 12:25 Discontinued 15 mg IV X1 ONE Sodium Chloride 0.9% 1000 ml [Ns] 1,000 ml Med 10/04/24 13:52 Discontinued IV 999 mls/hr Vital Signs Vital signs: Vital Signs Pulse Rate 188 H 10/04/24 12:15 Blood Pressure 129/70 10/04/24 12:15 Critical Care Time Critical Care Time Critical Care Time: Yes Total Critical Care Time (min.): 45 Attestation: The high probability of sudden, clinically significant deterioration in the patient?s condition required the highest level of my preparedness to intervene urgently. The services I provided to this patient were to treat and/or prevent clinically significant deterioration. Services included the following: chart data review, reviewing nursing notes and/or old charts, documentation time, financial reporting consultant collaboration regarding findings and treatment options, medication orders and management, direct patient care, vital sign assessments and ordering, interpreting and reviewing diagnostic studies and lab tests. Aggregate critical care time includes only time during which I was engaged in work directly related to the patient?s care, as described above, whether at bedside or elsewhere in the Emergency Department. It did not include time spent performing other reported procedures or the services of residents, students, nurses or physician assistants. Discharge Plan Plan Patient Disposition: HOME (Self Care) Prescriptions/Referrals Referrals: Wagner Contreras NP [Primary Care Provider] - In 1 week Problem List Clinical Impression: Atrial fibrillation with rapid ventricular response, Sinus tachycardia, Metastatic cancer to lung, Colon cancer, History of kidney cancer Patient/Caregiver Discharge Instructions Additional Instructions: You had atrial fibrillation with rapid reticular response that responded to diltiazem. You converted to a sinus tach at 115 and after some fluids your heart rate came down to the upper 80s low 90s. CT angiogram of your chest reveals no blood clots. There are bilateral pulmonary nodules present. This is consistent with the already known mets to your lungs. Your oncologist will advise you further. Call and make an appointment for Sunday See Dr. Fish your apprentice funeral director discussed any treatment for the transient intermittent atrial fibs. Return if you are getting worse. Print Language: [place] Stand Alone Forms: Patient Portal Info Letter MDM Narrative MDM hospital course: Patient presents with A-fib RVR with a history of renal cell carcinoma 12 years ago and history of colon cancer diagnosed a year ago and now concerns of mets in the lungs. There is no history of pulmonary embolus. Patient was initially given 25 mg total of diltiazem IV and converted to a sinus tach of 110 115 from the 190 A-fib. Patient is feeling much better. Medical workup reveals thyroid function be within normal limits. Sugars 128 BUN is 9 creatinine 1.2 elect rolytes are normal. CBC came back with a white count of 7.8 and a hemoglobin is elevated at 17.8 suggestive of polycythemia. Troponin was negative BNP was negative at 20. Review of the chart shows he is clinically involved with oncological services now. My concern is lewis he still have a sinus tach postconversion and that he pole arthroembolus so cannot get CTA of the chest. Patient also drinks daily but states he is never withdrawn before. He is having no hallucinations he is not tremulous but his heart rate is fast again it is uncertain why he has a sinus tach. A CT of the chest was done and there is no pulm embolus there are multiple nodules seen in the patient's is engaged with her oncologist to start treatment for metastatic lung disease presumed from the colon. Also patient's heart rate which was in the 150s postconversion from A-fib to sinus tach is now sinus rhythm in the 90s patient feels great drinking water wants to go home. The is present about the patient and the will contact the cancer center and engaged her oncologist Sunday to discuss treatments and/or wait for the holiday season as they already had a previous plan to wait till October 17. --------- Kristina Thayer am scribing for and in the presence of Dr. Hallman. Clinical Information Provided by patient and EMS Medical Records Reviewed [facility] and EMS Reviewed last oncology note by Dr. Chambers dated 09/25/24. Patient has history of renal cell carcinoma status post nephrectomy 12-15 years ago and recent rectal cancer status post surgery, presenting for follow-up of lung nodules disc overed on imaging. Also, adenocarcinoma of colon diagnosed on colonoscopy on 01/23/2024. Meds/Rx Considered, not Ordered None Labs/Rad/Tests considered, not Ordered None Chronic Illness/Social Conditions Add or document further as needed: Patient has history of renal cell carcinoma status post nephrectomy 12-15 years ago and recent rectal cancer status post surgery, presenting for follow-up of lung nodules discovered on imaging. Also, adenocarcinoma of colon diagnosed on colonoscopy on 01/23/2024. EKG EKG Interpretation narrative: EKG #1: My interpretation: EKG performed at 1212 hours, atrial fibrillation with rapid ventricular response, rate 188, no STEMI EKG #2: My interpretation: EKG performed at 1634 hours, sinus rhythm, rate 90, no STEMI Lab Interpretation Labs: see narrative above Imaging Imaging interpretation: see narrative above Radiology reports / interpretation(s): Procedure(s): XR chest 1V portable Accession Number(s): [id number] cc: Wagner Contreras NP; Bernard Hallman MD; Cesar Terrell MD~ Examination: AP chest single view Technique one AP portable upright chest single view Date and time: October 04, 2024 1239 hrs. Comparison September 06, 2022 Indications: Chest pain beginning 2 days ago. Findings: Normal heart size No pneumonia or pulmonary edema. Moderate osteopenia Impression: No pneumonia or pulmonary edema Dictated By: Cesar Terrell MD Procedure(s): CT angio chest Accession Number(s): [id number] cc: Wagner Contreras NP; Bernard Hallman MD; Cesar Terrell MD~ Examination: CTA chest with intravenous contrast 2-D reconstructions 3-D reconstructions, vascular Date and time of exam: October 04, 2024, 1503 hrs. Indications: Sinus tachycardia chest pain shortness of breath today, cancer history CTDI: vol (mGy) 20.9 DLP: (mGycm) 498 Technique: Multiple axial sections of the thorax have been obtained. 3 mm slice thickness, from below the hemidiaphragms to above the apices of the lungs. Mediastinal and lung density settings have been obtained. 2-D sagittal and coronal reconstructions. 3-D angiographic renderings, 3-D volume renderings, 3D post processing, vascular maximum intensity projections obtained. Contrast administered is 100 cc Isovue-370 intravenous. Low dose protocols were performed. One or more of the following dose reduction techniques were used; automated exposure control, adjustment of the mA and/or KV according to patient size, use of iterative reconstruction technique. Findings: No thoracic aortic aneurysmal dilatation or dissection No pulmonary artery filling defects 12 mm pulmonary nodule right upper lobe 10 mm pulmonary nodule left upper lobe 9 mm pulmonary nodule right midlung 6 mm pleural-based pulmonary nodule right midlung 10 mm pulmonary nodule right lower lobe No lobar pneumonia or pulmonary edema Necrotic 34 mm right tracheobronchial lymph node 20 mm right hilar lymph nodes 10 mm liver cyst No gallstones No pancreatic or adrenal mass Aorta normal size Impression: Negative for pulmonary artery emboli Right tracheobronchial right hilar metastatic lymphadenopathy Metastatic pulmonary nodular disease. No lobar pneumonia or pulmonary edema Dictated By: Cesar Terrell MD Medication Administration(s) Medication Administration History Discontinued Medications Diltiazem HCl (Diltiazem Inj 5 Mg/Ml Vial 5 Ml) 10 mg IV X1 ONE Stop: 10/04/24 12:07 Last Admin: 10/04/24 12:15 Dose: 10 mg Documented By: VL Diltiazem HCl (Diltiazem Inj 5 Mg/Ml Vial 5 Ml) 15 mg IV X1 ONE Stop: 10/04/24 12:26 Last Admin: 10/04/24 12:26 Dose: 15 mg Documented By: VL Sodium Chloride (Ns) 1,000 mls @ 999 mls/hr IV .Q1H1M ONE Stop: 10/04/24 14:52 Last Infusion: 10/04/24 14:58 Dose: Infused Documented By: Admin: 10/04/24 13:57 Dose: 999 mls/hr Documented By: EF Diagnosis Differential diagnosis: cancer mets, lung cancer, PE Most likely dx, and/or detailed dx discussion: Atrial fibrillation with RVR Sinus tachycardia Metastatic cancer to lung Colon cancer History of kidney cancer Dispositon Disposition: Discharge Home
[2024-10-04] MEDS: DILTIAZEM INJ 5 MG/ML VIAL 5 ML 10 MG IV (12:15)
--- NOTE | 2024-10-04 12:17 | PC.NURSE ---
Patient BIBA from home for heart palpitations and chest discomfort that started when patient was sitting in his living room couch. Patient called EMS. Patient is alert and oriented X4. Denies chest pain at this time. 10mg Cardizem IV given per Dr. Hallman. Patient states this has happened to him before and does not remember what medication they gave him to slow his heart rate down.
[2024-10-04] MEDS: DILTIAZEM INJ 5 MG/ML VIAL 5 ML 15 MG IV (12:26)
[2024-10-04 12:33] LABS: Basophils # (Auto) 0.1 Thou/mm3 (0.0-0.2); Basophils % (Auto) 1 % (0-2.5); Eosinophils # (Auto) 0.1 Thou/mm3 (0.0-0.5); Eosinophils % (Auto) 2 % (0-10); Hematocrit 49.9 % (41.0-53.0); Hemoglobin 17.8 g/dL (13.5-16.0); Immature Granulocytes % (Auto) 0 % (0-0); Immature Granulocytes Auto 0.03 Thou/mm3 (0.00-0.00); Lymphocytes # (Auto) 3.4 Thou/mm3 (1.0-4.8); Lymphocytes % (Auto) 43 % (10-50); Mean Corpuscular HGB Conc 35.7 g/dl (31.0-37.0); Mean Corpuscular Hemoglobin 31.6 pg (25.0-35.0); Mean Corpuscular Volume 89 fL (80-100); Monocytes # (Auto) 0.5 Thou/mm3 (0.0-0.8); Monocytes % (Auto) 7 % (0-12); Neutrophils # (Auto) 3.6 Thou/mm3 (1.8-7.7); Neutrophils % (Auto) 47 % (37-80); Nucleated Red Blood Cell % 0 /100 WBC (0); Platelet Count 280 Thou/mm3 (140-440); RDW Standard Deviation 42.7 fL (35.1-43.9); Red Blood Count 5.64 Miln/mm3 (4.50-5.90); White Blood Count 7.8 Thou/mm3 (3.8-10.6)
[2024-10-04 12:59] LABS: T4 (Thyroxine) 7.6 mcg/dL (4.5-10.9)
[2024-10-04 13:01] LABS: Alanine Aminotransferase 26 U/L (10-49); Albumin, Serum 4.8 gm/dL (3.4-4.8); Alcohol, Blood Medical < 3.0 mg/dL (0-10.0); Alkaline Phosphatase 70 U/L (46-116); Anion Gap 12 (7-16); Aspartate Amino Transferase 24 U/L (0-34); BUN/Creatinine Ratio 8 Ratio (12-20); Bilirubin,Total 0.6 mg/dL (0.3-1.2); Blood Urea Nitrogen 9 mg/dL (9-23); Calcium 9.4 mg/dL (8.3-10.6); Calcium (Corrected) 9.4 mg/dL (8.5-10.1); Carbon Dioxide 26.1 mMol/L (20.0-31.0); Chloride 103 mMol/L (98-107); Creatinine (Component) 1.2 mg/dL (0.6-1.3); Estimated Creatinine Clearance 78.6 mL/min (>60); Globulin 2.4 gm/dL (2.3-3.5); Glucose 128 mg/dL (74-106); Osmolality,Calculated 281 (275-295); Potassium 3.8 mMol/L (3.4-5.1); Sodium 141 mMol/L (136-145); Thyroid Stimulating Hormone 1.41 uIU/mL (0.55-4.78); Total Protein 7.2 gm/dL (5.7-8.2); Troponin I < 0.020 ng/mL (0.0-0.045); eGFR > 60 See Note
[2024-10-04 13:05] LABS: B-Type Natriuretic Peptide 20 pg/mL (0-100)
--- NOTE | 2024-10-04 13:51 | XR_ITS ---
Examination: CTA chest with intravenous contrast 2-D reconstructions 3-D reconstructions, vascular Date and time of exam: October 04, 2024, 1503 hrs. Indications: Sinus tachycardia chest pain shortness of breath today, cancer history CTDI: vol (mGy) 20.9 DLP: (mGycm) 498 Technique: Multiple axial sections of the thorax have been obtained. 3 mm slice thickness, from below the hemidiaphragms to above the apices of the lungs. Mediastinal and lung density settings have been obtained. 2-D sagittal and coronal reconstructions. 3-D angiographic renderings, 3-D volume renderings, 3D post processing, vascular maximum intensity projections obtained. Contrast administered is 100 cc Isovue-370 intravenous. Low dose protocols were performed. One or more of the following dose reduction techniques were used; automated exposure control, adjustment of the mA and/or KV according to patient size, use of iterative reconstruction technique. Findings: No thoracic aortic aneurysmal dilatation or dissection No pulmonary artery filling defects 12 mm pulmonary nodule right upper lobe 10 mm pulmonary nodule left upper lobe 9 mm pulmonary nodule right midlung 6 mm pleural-based pulmonary nodule right midlung 10 mm pulmonary nodule right lower lobe No lobar pneumonia or pulmonary edema Necrotic 34 mm right tracheobronchial lymph node 20 mm right hilar lymph nodes 10 mm liver cyst No gallstones No pancreatic or adrenal mass Aorta normal size Impression: Negative for pulmonary artery emboli Right tracheobronchial right hilar metastatic lymphadenopathy Metastatic pulmonary nodular disease. No lobar pneumonia or pulmonary edema
[2024-10-04] MEDS: SODIUM CHLORIDE 0.9% 1000 ML 1,000 ML 999 ML IV (13:57)
[2024-10-04 15:04] LABS: Collection Type, Urine Clean Catch; Squamous Epithelial Cell,Urine 0 /hpf (0-5)
[2024-10-04 15:20] LABS: Bilirubin,Urine Negative (Negative); Blood,Urine Negative (Negative); Clarity,Urine Clear (Clear/Hazy); Color,Urine Yellow (Lt Yel-Yel); Culture Indicated,Urine Not Indicated; Glucose, Urine Negative (Negative); Ketones,Urine Negative (Negative); Leukocyte Esterase,Urine Negative (Negative); Nitrite,Urine Negative (Negative); Protein,Urine Trace (Neg - Trace); RBC,Urine 1 /hpf (0-3); Specific Gravity,Urine 1.023 (1.001-1.035); Urobilinogen,Urine Negative mg/dL (0.0-1.0); WBC,Urine 1 /hpf (0-5)
--- NOTE | 2024-10-04 16:32 | EKG_ITS ---
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1960 Requested By: Bernard Hallman Order Number: [id number] Reading MD: Bernard Hallman Measurements Intervals [place] Rate: 90 P: 62 CT: 147 QRS: 38 QRSD: 126 T: 31 QT: 341 QTc: 417 Interpretive Statements SINUS RHYTHM RIGHT BUNDLE BRANCH BLOCK [120+ ms QRS DURATION, UPRIGHT V1, 40+ ms S IN I/aVL/V4/V5/V6] Compared to ECG 10/04/2024 12:12:01 Right bundle-branch block now present Atrial fibrillation no longer present Indeterminate axis no longer present Incomplete right bundle-branch block no longer present ST (T wave) deviation no longer present /store/S0/[id number].pdf
== END 2024-10-04 17:05 | disposition home or self-care (01) ==
PROVIDERS: Emergency Provider Emergency Medicine; PCP Nurse Practitioner Family
DX: I48.91 Unspecified atrial fibrillation (principal); C77.1 Secondary and unspecified malignant neoplasm of intrathoracic lymph nodes; C78.02 Secondary malignant neoplasm of left lung; C78.01 Secondary malignant neoplasm of right lung; C20 Malignant neoplasm of rectum; C18.9 Malignant neoplasm of colon, unspecified; I45.10 Unspecified right bundle-branch block; R00.0 Tachycardia, unspecified; Z85.528 Personal history of other malignant neoplasm of kidney; Z87.891 Personal history of nicotine dependence
CPT/HCPCS: 36415; 71045; 71275; 80053; 80320; 81001; 83880; 84436; 84443; 84484; 85025; 93005; 96360; 99291; A4649; J3490; J7030; Q9967; G0480

== ENCOUNTER 2024-11-07 09:30 | Outpatient (RCR) | payer BC, SELFPAY ==
--- NOTE | 2024-10-23 06:48 | CTCFLWUP_ITS ---
Patient: WEN CHRISTIAN : 1960 Page 3 of 5 FOLLOW UP NOTE DATE OF SERVICE: 10/22/2024 NAME: WEN CHRISTIAN ACCOUNT: [id number] : 1960 AGE: 63 INTERVAL HISTORY: Subjective: Chief Complaint - Recent hospitalization for palpitations - Follow-up for rectal cancer, diagnosed in January - Follow-up for newly diagnosed stage 4 kidney cancer Objective: Laboratory, Imaging, and Diagnostic Test Results - Biopsy: Lung biopsy performed (date not specified) - MRI: Performed (date not specified) - CAT scan: Performed in ER, showing nodules in both lungs (date not specified) ONCOLOGY HISTORY: DIAGNOSIS: Malignant neoplasm of rectum [ICD10] C20 DATE OF DIAGNOSIS: 01/23/2024 adenocarcinoma of colon diagnosed on colonoscopy STAGE/TNM: T2 Nx M0(as no lymph nodes were seen by the surgeon which were normal and none were removed) TREATMENT HISTORY: Care?Plan Start?Date Cycle Day Intent Pembrolizumab?alone 09/22/2024 1 21 Palliative HISTORY OF PRESENT ILLNESS: 63-year-old male is here to establish care for his rectal cancer. Patient underwent a robotic right nephrectomy with Dr. Sy for tumor about 10 years ago. Underwent recent colonoscopy which showed numerous polyps largest 3 cm lesion in the rectum was biopsied only which showed high-grade dysplasia with possible intramucosal adenocarcinoma. Patient had a CT scan which showed no evidence of metastatic disease. Patient had a small cyst in the liver. MRI pelvis showed a lesion on the left lateral aspect of the distal rectum 3 cm from the sphincter read as T3. No enlarged or suspicious lymph nodes on the read but surgeons are few visible less than 5 mm few.Left lateral tumor with central ulceration. 0n ultraSUund majority seems T1, with perhaps slight areaiin the middle of T2 involvemmnt. LocatiOn is adjacent to coceyx below lst valve of Renteria on left lateral zspcct of rectal well, about 1 cm ab0ve upper border of levator. No suspicious lymph nodes and no evidence of T3 involvement. So proce eded with transanal TAMIS excision (full thickness). Some bleeding from posterior area controlled with ligasure. Defect left open to heal by secondary intention. The specimen displays a 2.5 x 2.2 cm fungating lesion with elewted edges. The tumor IS disrupted at the left/anterior aspect, and abuts the inked gmen margin near the proximal aspect. The specimen is serially sectioned from proximal to distal. and entirely submitted as follows}:DIAGNOSIS: (Veri?ed) E TRANSANAL acrsron or: RECTAL LESION MINIMALLY INVASIVE A. Recrosremoro COLON POLYPS (BIOPSY): - Hypemlastic polyp(8)- l B. RECTAL LESION (TRANSANAL EXCISION): - Imasive moderately to poody differentiated adenocarcinOma. an?sing from tubular adenoma. - The carcinoma focally inwdes the musculan's propria (p12). - Lymphomscular invasion is present (Small vessel and large vessel). - Pen?neural invasion is present. - Tumor budding score: lntemrediate (5-3). - Margins are negative for imesive carcinoma and adenoma. Closest margin to carcinoma is 2 mm from the green lateral inked margin (opposite to the left/anterior half. near proximal).COMMENT: 1 WW % lmmunohistochemical stains (block B4) (or mismatch repair proteins (MLH1. PMSZ. MSH2. MSHS) show intact n uclear expression. indicating a low likelihood o?microsatellite instability. Radiation oncology note--- Patient is a 63 -year-old gentleman initially followed in [place] for high-grade dysplasia in colonic adenoma, with numerous polyps removed, the larger 3 cm lesion in the rectum was biopsied which showed possible intramucosal adenocarcinoma. Was reevaluated at [facility] by Dr. Ramon Ivy MD who underwent on February 27, 2024 excision of rectal tumor transanal endoscopic microsurgical approach including muscularis propria. Final path revealed invasive moderately to poorly differentiated adenocarcinoma arising from tubular adenoma carcinoma focally invading the musculus propria pT2. Lymphovascular invasion present tumor budding score intermediate margins negative for invasive carcinoma and adenoma. Mismatch repair proteins showed intact nuclear expression indicating low likelihood of microsatellite instability. Patient had preop CT scan 01/17/2024 which revealed few pulmonary nodules scar throughout lungs largest 1.1 x 0.9 cm, with no other suspicious areas in abdomen or pelvis. Mild nonspecific rectal wall thickening in the lower rectum with right kidney surgically absent. Spoke with Dr. Ivy today who recommended radiation therapy and chemo based on NCCN guidelines. OTHER MEDICAL HISTORY/CONDITIONS: HEART MURMUR SEASONAL ALLERGIES BRONCHITIS HERNIA NEPHRECTOMY FLU CHICKEN POX HAY FEVER EAR INFECTIONS ROTATOR CUFF HERNIA RIGHT NEPHRECTOMY RIGHT 8 YEARS AGO RIGHT EAR SX WITH DR ELDRIDGE FAMILY HISTORY: Father:?FATHER?BRAIN?CANCER Cancer History:?COLON CANCER DX 01/2024, LIP SX SQUAMOUS CELL YEARS AGO SOCIAL HISTORY: Occupational?History:?RETIRED RETAIL ASSISTANT MANAGER, [employer] Education?Level:?College Graduate, 2 year degree Marital?Status:? Tobacco?Pack?per?Day:?0 Tobacco?Use?Years:?40 ETOH Use:?SOCIAL DRINKER [employer]REF[employer] Drug?Note:?DENIES Social?History?Note:?LIVES?WITH? MEDICATIONS: 1. Cialis - 5 mg As directed 2. levocetirizine dihydrochloride - 5 mg Daily 3. multivitamin - 1 Gum Daily 4. Singulair - As directed 5. Xyosted - Weekly Medications Last Reconciled by Annabelle Taylor MA on 10/22/2024 ALLERGIES: No Known Drug Allergies REVIEW OF SYSTEMS: A complete 14-point review of systems was performed and is negative except as noted in interval history. PHYSICAL EXAMINATION: VITAL SIGNS: Temperature?99.3, B/P?135/81, Oxygen?Saturation?97% PAIN: 0 - No pain ECOG Performance Status: 0 - Asymptomatic and fully active GENERAL APPEARANCE: Appears well, in no apparent distress, appropriately interactive. HEENT: Normocephalic, no temporal wasting, normal conjunctiva, no scleral icterus, normal hearing, lips without lesions, neck normal range of motion. CARDIOVASCULAR: Not assessed. PULMONARY: Normal respiratory effort, no respiratory distress or use of accessory muscles, speaking in full sentences, no tachypnea. EXTREMITIES: No pedal edema or cyanosis. SKIN: Normal skin appearance. NEUROLOGIC: Alert and oriented x4. PSHYCHIATRIC: Appropriate affect, mood normal, behavior normal, intact thought and speech. Laboratory, Imaging, and Diagnostic Test Results - Biopsy of right lung nodule: Positive for carcinoma, consistent with metastasis from renal primary - Immunohistochemistry results: - Positive: Mahan-CK, RCC, CD10, Pax8 - Negative: TTF1, CK7, CK20, Melan-A, SOX10, NKX3.1 - CT scan (January 2024): - Right lun.9 cm nodule with adjacent small satellite nodule, speculations surrounding - Left upper lobe: Irregular 0.9 x 0.7 cm nodule - Right middle lobe: Subpleural triangular nodular opacity, possibly atelectasis - Right lower lobe: Solid non-calcified 0.9 x 0.7 cm nodule - PET scan: - 15 mm non-hypermetabolic mass noted - Netera test for rectal cancer: Negative LABORATORY DATA: I have personally reviewed and interpreted each of the patient?s relevant lab tests, abnormal findings are below: Date 05/30/24 10/04/24 ??WHITE?BLOOD?COUNT?(Thou/mm3) ? 7.8 ??RED?BLOOD?COUNT?(Miln/mm3) ? 5.64 ??HEMOGLOBIN?(gm/dl) ? 17.8?HH ??HEMATOCRIT?(%) ? 49.9 ??PLATELET?COUNT?(Thou/mm3) ? 280 ??NEUTROPHILS?%,?AUTO?(%) ? 47 ??LYMPH?%,?AUTO?(%) ? 43 ??NEUTROPHILS,?AUTO?(Thou/mm3) ? 3.6 ??GLUCOSE,RANDOM?(mg/dL) 91 128?H ??BLOOD?UREA?NITROGEN?(mg/dL) 17 9 ??CREATININE?(mg/dL) 1.20 1.20 ??SODIUM?(mmol/L) 142 141 ??POTASSIUM?(mmol/L) 4.6 3.8 ??CHLORIDE?(mmol/L) 105 103 ??CrCl?(CandG)?(ml/min) 77.15 76.49 ??AST/SGOT?(Unit/L) 19 24 ??ALT/SGPT?(Unit/L) 22 26 ??ALKALINE?PHOSPHATASE?(Unit/L) 65 70 ??BILIRUBIN,?TOTAL?(mg/dL) 0.5 0.6 ??PROTEIN?TOTAL?(gm/dl) 7.3 7.2 ??ALBUMIN,?SERUM?(gm/dl) 5.0?H 4.8 ??GLOBULIN?(gm/dl) 2.3 2.4 ??ALBUMIN/GLOBULIN?RATIO 2.2 2.0 ??CALCIUM,?SERUM?(mg/dL) 10.5 9.4 ??CALCIUM?SERUM?(CORRECTED)?(mg/dL) 10.5?H 9.4 ??CEA?(O*)?(ng/ml) 1.7 ? ASSESSMENT/PLAN: Amado Smith, 63-year-old male with history of renal cell carcinoma s/p nephrectomy 12-15 years ago and recent rectal cancer s/p surgery, presents for follow-up of lung nodules discovered on recent imaging. Assessment and Plan: Amado Hopkins presents with stage 2 rectal cancer diagnosed in January and newly diagnosed stage 4 kidney cancer with lung metastases, seeking treatment options and management. Stage 2 Rectal Cancer Assessment: Patient was diagnosed with T2M0 rectal cancer in January. Initially planned for capecitabine treatment, but has not started yet. The cancer WAS classified as stage 2, indicating localized disease without distant metastases. Capecitabine not approved by insurance and patient did not wanted to take it . now willing fo thomas therapy Plan: - Initiate 5 fu chemotherapy for 3 to 6 months - Consider infusion if insurance won't cover tablets - Reassess after completion of chemotherapy course - Transition to immunotherapy following chemotherapy Stage 4 Kidney Cancer with Lung Metastases Assessment: Patient has been newly diagnosed with stage 4 kidney cancer with metastases to the lungs. The primary kidney tumor has already been surgically removed. Lung nodules were identified on CAT scan in the ER and confirmed to be metastatic renal cell carcinoma through biopsy. The lung nodules are currently stable. Plan: - Initiate immunotherapy with Keytruda (pembrolizumab) after completion of colon cancer treatment - Submit documentation to insurance company clarifying new kidney cancer diagnosis for Keytruda approval - Monitor lung nodules for progression - Obtain brain MRI to assess for potential metastases - Consult with [facility] doctor for second opinion - Share all relevant reports and imaging - Schedule follow-up to discuss immunotherapy timing and frequency options (every 3-4 weeks or every 6 weeks) Recent Hospitalization for Palpitations Assessment: Patient reports recent hospitalization due to palpitations. Evaluated in the ER but has not yet seen a nephrology social worker for follow-up. Plan: - Submit referral to cardiology for evaluation RETURN TO CLINIC: I reviewed the diagnosis, prognosis, and recommended treatment/procedure options with the patient (and/or their legal customer loyalty representative), including the potential benefits, risks, side effects and alternative therapies. We also discussed the option of no treatment and the possibility of clinical trial participation, if applicable. All questions were addressed, and they demonstrated understanding. They provided informed consent to proceed with the proposed plan of care. BILLING AND COMPLIANCE: I reviewed external records from providers outside my specialty as summarized above. I spent a total of 50 minutes on this patient?s care on the day of their visit excluding time spent related to any billed procedures. This time includes time spent with the patient as well as time spent documenting in the medical record, reviewing patients records and tests, obtaining history, placing orders, communicating with other healthcare professionals, counseling the patient, family or caregiver, and/or care coordination for the diagnoses above. Electronically Signed by: Colten Chambers MD T: 6:46 AM CC: PCP: Antonio Watt Referring: Antonio Watt This document was completed utilizing speech recognition software. Grammatical errors, random word insertions, pronoun errors, and incomplete sentences are an occasional consequence of this system due to software limitations, ambient noise, and hardware issues. Any formal questions or concerns about the content, text or information contained within the body of this dictation should be directly addressed to the provider for clarification.
== END 2024-11-13 23:59 | disposition home or self-care (01) ==
LOC: SCTC 09:30
PROVIDERS: PCP Specialist; Referring Provider Specialist; Visit Provider Internal Medicine Hematology & Oncology
DX: C20 Malignant neoplasm of rectum (principal); C64.1 Malignant neoplasm of right kidney, except renal pelvis; C78.01 Secondary malignant neoplasm of right lung; Z90.5 Acquired absence of kidney; R00.2 Palpitations
CPT/HCPCS: 99212; G0463

== ENCOUNTER 2024-11-13 07:44 | Outpatient (CLI) | payer BC, SELFPAY ==
[2024-11-11 14:34] VITALS: BMI 30.9
[2024-11-12 13:48] LABS: Basophils # (Auto) 0.1 Thou/mm3 (0.0-0.2); Basophils % (Auto) 1 % (0-2.5); Eosinophils # (Auto) 0.2 Thou/mm3 (0.0-0.5); Eosinophils % (Auto) 2 % (0-10); Hematocrit 49.6 % (41.0-53.0); Hemoglobin 16.8 g/dL (13.5-16.0); Immature Granulocytes Auto 0.03 Thou/mm3 (0.00-0.00); Lymphocytes # (Auto) 3.6 Thou/mm3 (1.0-4.8); Lymphocytes % (Auto) 44 % (10-50); Mean Corpuscular HGB Conc 33.9 g/dl (31.0-37.0); Mean Corpuscular Hemoglobin 30.8 pg (25.0-35.0); Mean Corpuscular Volume 91 fL (80-100); Monocytes # (Auto) 0.8 Thou/mm3 (0.0-0.8); Monocytes % (Auto) 10 % (0-12); Neutrophils # (Auto) 3.4 Thou/mm3 (1.8-7.7); Neutrophils % (Auto) 42 % (37-80); Nucleated Red Blood Cell # 0.00 Thou/mm3 (0.00-0.00); Nucleated Red Blood Cell % 0 /100 WBC (0); Platelet Count 264 Thou/mm3 (140-440); RDW Standard Deviation 42.8 fL (35.1-43.9); Red Blood Count 5.45 Miln/mm3 (4.50-5.90); White Blood Count 8.1 Thou/mm3 (3.8-10.6)
[2024-11-12 13:56] LABS: INR 1.0 (0.9-1.3); Partial Thromboplastin Time 29.1 Seconds (22.0-36.0); Prothrombin Time 11.0 Seconds (9.0-12.2)
[2024-11-13] VITALS (12 sets, daily range): BP systolic 115–156; BP diastolic 72–97; PULSE 75–92; RESP 12–18; TEMP 36.6–37; O2SAT 94–99
--- NOTE | 2024-11-13 08:30 | XR_ITS ---
Examination: IR venous implantation Port-A-Cath Ultrasound-guided needle placement right internal jugular vein. Fluoroscopy AP Chest, portable single view Exam date and time: November 13, 2024 0844 hours INDICATIONS: Diagnosis malignant neoplasm of the rectum, need for long-term intravenous chemotherapy. Informed consent provided Technique: A timeout was completed, verifying correct patient, procedure, site, positioning, and special equipment if applicable The patient was placed in a dependent position appropriate for central line placement based on the vein to be cannulated. The patient's right neck was prepped and draped in sterile fashion. Maximum Sterile Barrier Technique used including cap, mask, sterile gown, sterile gloves, and sterile full body drape. If ultrasound technique used: sterile gel and sterile probe covers. Hand Hygiene performed using proper scrub, soap and water, or alcohol-based hand rub. Site-Rite portable apparatus utilized to confirm patency of the right internal jugular vein Utilizing ultrasonographic guidance successful 21-gauge needle puncture into the right internal jugular vein Ultrasound images were recorded and stored. Successful micropuncture with a 21-gauge needle was performed. 0.18 wire guide was introduced into the IVC under fluoroscopic guidance. The wires is then exchanged for a 0.25 J-wire guide placed in the vena cava. Utilizing blunt dissection subcutaneous pocket formed in the upper right chest, Port-A-Cath reservoir placed in the pocket connected to a 8 Czech 21 cm Port-A-Cath line placed through a venous sheath into the superior vena cava in proper position The attending radiologist was present for the entire procedure Estimated blood loss2 cc. Findings: Under fluoroscopy, the tip of the Port-A-Cath is in good position in the vena cava. Portable chest x-ray, post Port-A-Cath placement, as ordered. Impression: Successful ultrasound-guided needle placement right internal jugular vein. Successful IR venous implantation Port-A-Cath Fluoroscopy 0.2 minute radiation dose 2.10 milligray 1 spot fluoroscopic chest film. AP portable chest completion procedure demonstrates satisfactory position Port-A-Cath tip SVC. May use Port-A-Cath
[2024-11-13] MEDS: ceFAZolin/D5W 1 GM IVPB 1 GM/50 ML BAG IV (09:17)
[2024-11-13] MEDS: fentaNYL CIT INJ 50 mCg/ML AMP 2ML 100 MCG IVP (09:35)
[2024-11-13] MEDS: HEPARIN SOD LOCK SYR 100 UNIT/ML 500 UNIT STFIELD (09:37)
[2024-11-13] MEDS: LIDOCAINE 1% W/EPI 1:100K 20 ML VIAL 5 ML INFL (09:37)
[2024-11-13] MEDS: LIDOCAINE INJ PF 1% 30 ML VIAL 5 ML INFL (09:37)
--- NOTE | 2024-11-13 11:01 | PC.NURSE ---
1001 patient is awake, alert, breathing unlabored, s/p port placement to right chest, dressing dry with no bleeding. patient taken to labeling machine operator for 1hr recovery 1101 patient is awake, alert, breathing unlabored, dressing to right chest dry with no bleeding, meets discharge criteria, discharge instructions given to patient and Domi, patient discharged home in wheelchair with all belongings.
== END 2024-11-13 11:01 | disposition home or self-care (01) ==
PROVIDERS: Radiology Diagnostic Radiology; PCP Nurse Practitioner Family; Referring Provider Internal Medicine Hematology & Oncology; Visit Provider Internal Medicine Hematology & Oncology
DX: C20 Malignant neoplasm of rectum (principal); Z01.812 Encounter for preprocedural laboratory examination
CPT/HCPCS: 36561; 36415; 76937; 77001; 85025; 85610; 85730; C1769; C1788; C1894; J0689; J0690; J1642; J3010; J3490; J7050

== ENCOUNTER → 2024-11-25 | Outpatient (CLI) | payer BC, SELFPAY ==
--- NOTE | 2024-11-25 09:30 | XR_ITS ---
Examination: CT chest with intravenous contrast CT abdomen with intravenous contrast CT pelvis with intravenous contrast CT chest without intravenous contrast CT abdomen without intravenous contrast CT pelvis without intravenous contrast 2-D coronal and sagittal reconstructions INDICATIONS: Diagnosis malignant neoplasm rectum,, diagnosis March 2024 restaging Time of exam: November 25, 2024 0946 hours, comparison CT chest October 04, 2024, MR pelvis June 14, 2024, PET/CT scan June 09, 2024 CTDI: vol (mGy) : 17.3 DLP: (mGycm): 1430 Technique: Multiple axial images of the chest, abdomen and pelvis with intravenous contrast, 3.0 mm slice thickness. Images obtained post intravenous injection Isovue 370 60 cc. 2-D sagittal and coronal reconstructions. Low dose protocols were performed. One or more of the following dose reduction techniques were used; automated exposure control, adjustment of the mA and/or KV according to patient size, use of iterative reconstruction technique. Findings: No thoracic aortic aneurysm dilatation or dissection 3.5 cm right tracheobronchial lymph node compared to 2.0 cm on PET study June 09, 2024 No thoracic aortic aneurysm dilatation 9 mm spiculated pulmonary nodule right upper lobe compared to 15 mm on PET study June 09, 2024 New pulmonary nodules, 6 mm left upper lobe image 158, 2 mm posterior right lung image 161, 8 mm right upper lobe image 174, 10 mm right lower lobe compared to 8 mm on PET scan June 09, 2024, 2 mm left lower lobe image 248, 2 mm left lower lobe image 270 No pneumonia or pulmonary edema No interval liver or splenic lesions Contracted gallbladder Normal pancreas normal adrenal glands No interval abdominal lymphadenopathy No bowel obstruction Scattered colonic diverticulosis 8mm left perirectal lymph node not seen on the PET/CT scan Moderate osteopenia IMPRESSION: Progression of pulmonary nodular metastatic disease compared with PET CT scan June 09, 2024 8 mm left perirectal lymph node, not seen on the PET/CT scan June 09, 2024
== END | disposition home or self-care (01) ==
PROVIDERS: PCP Internal Medicine Hematology & Oncology; Referring Provider Internal Medicine Hematology & Oncology; Visit Provider Internal Medicine Hematology & Oncology
DX: C78.00 Secondary malignant neoplasm of unspecified lung (principal); C20 Malignant neoplasm of rectum
CPT/HCPCS: 71270; 74178; A4649; Q9967

== ENCOUNTER → 2024-11-29 | Outpatient (CLI) | payer BC, SELFPAY ==
--- NOTE | 2024-11-29 16:00 | XR_ITS ---
Examination: MRI of brain without intravenous contrast. MRI brain with intravenous contrast. Date and time of exam:November 29, 2024 1608 hours INDICATIONS: Rectal carcinoma diagnosis 2023, staging Technique: Multiple axial and sagittal images of the brain to been obtained. Siemens high-resolution 1.52 Vicki short bore scanner utilized. Sagittal sections, T1 weighted images, TR 500, TE 14, are performed. Axial sections proton-density and T2-weighted images have been obtained. Inversion recovery axial images, TR 9260, TE 111, TR 2500. Diffusion weighted images, axial sections, TR 4800, TE 128, B value 1000. Axial sections, ADC map, TR 4800, TE 128. Axial and coronal images were also obtained post for cc gadolinium administered intravenously. Findings:: Enlargement of the sella turcica is not present. The optic chiasm and infundibular stalk are not remarkable. There is no localized enlargement of the medulla or perez. Fourth ventricle and cerebellar tonsils appear normal in position. No subacute area of hemorrhage density is seen. Fourth ventricle is midline. Mass in the cerebellopontine angle region is not evident. 7th and 8th nerve complexes exhibit symmetry Globes are symmetrical Orbital musculature including medial lateral rectus muscles do not exhibit abnormality Increased white matter signal is not significant Effacement of the cortical sulcal markings is not identified. Mass effect upon the ventricular system is not identified. Diffusion-weighted images demonstrate no focus of restricted diffusion Contrast images demonstrate no abnormal enhancement Impression: Negative for acute hemorrhage mass effect or midline shift No abnormal enhancing cerebellar or cerebral metastatic lesions
== END | disposition home or self-care (01) ==
PROVIDERS: Referring Provider Internal Medicine Hematology & Oncology; Visit Provider Internal Medicine Hematology & Oncology
DX: C20 Malignant neoplasm of rectum (principal)
CPT/HCPCS: 70553; A9577

== ENCOUNTER 2024-12-04 11:05 | Outpatient (RCR) | payer BC, SELFPAY ==
[2024-11-17 12:45] LABS: Free T3 3.1 pg/mL (2.3-4.2)
[2024-11-17 12:46] LABS: Alanine Aminotransferase 18 U/L (10-49); Albumin, Serum 4.6 gm/dL (3.4-4.8); Albumin/Globulin Ratio 1.9 (1.2-2.2); Alkaline Phosphatase 66 U/L (46-116); Anion Gap 10 (7-16); Aspartate Amino Transferase < 10 U/L (0-34); BUN/Creatinine Ratio 12 Ratio (12-20); Bilirubin,Total 0.4 mg/dL (0.3-1.2); Blood Urea Nitrogen 14 mg/dL (9-23); Calcium 9.9 mg/dL (8.3-10.6); Calcium (Corrected) 9.9 mg/dL (8.5-10.1); Carbon Dioxide 23.7 mMol/L (20.0-31.0); Chloride 105 mMol/L (98-107); Creatinine (Component) 1.2 mg/dL (0.6-1.3); Globulin 2.4 gm/dL (2.3-3.5); Glucose 86 mg/dL (74-106); Osmolality,Calculated 277 (275-295); Potassium 4.2 mMol/L (3.4-5.1); Sodium 139 mMol/L (136-145); Thyroid Stimulating Hormone 2.21 uIU/mL (0.55-4.78); Total Protein 7.0 gm/dL (5.7-8.2); eGFR > 60 See Note
[2024-11-17 12:47] LABS: Carcinoembryonic Antigen 1.9 ng/mL (0.0-5.0)
[2024-11-18 09:18] LABS: Basophils # (Auto) 0.1 Thou/mm3 (0.0-0.2); Basophils % (Auto) 1 % (0-2.5); Eosinophils # (Auto) 0.3 Thou/mm3 (0.0-0.5); Eosinophils % (Auto) 3 % (0-10); Hematocrit 48.3 % (41.0-53.0); Hemoglobin 16.2 g/dL (13.5-16.0); Immature Granulocytes Auto 0.03 Thou/mm3 (0.00-0.00); Lymphocytes # (Auto) 2.5 Thou/mm3 (1.0-4.8); Lymphocytes % (Auto) 30 % (10-50); Mean Corpuscular HGB Conc 33.5 g/dl (31.0-37.0); Mean Corpuscular Hemoglobin 30.9 pg (25.0-35.0); Mean Corpuscular Volume 92 fL (80-100); Monocytes # (Auto) 0.7 Thou/mm3 (0.0-0.8); Monocytes % (Auto) 8 % (0-12); Neutrophils # (Auto) 4.7 Thou/mm3 (1.8-7.7); Neutrophils % (Auto) 57 % (37-80); Nucleated Red Blood Cell # 0.00 Thou/mm3 (0.00-0.00); Nucleated Red Blood Cell % 0 /100 WBC (0); Platelet Count 204 Thou/mm3 (140-440); RDW Standard Deviation 44.0 fL (35.1-43.9); Red Blood Count 5.25 Miln/mm3 (4.50-5.90); White Blood Count 8.2 Thou/mm3 (3.8-10.6)
[2024-12-01 12:29] LABS: Basophils # (Auto) 0.1 Thou/mm3 (0.0-0.2); Basophils % (Auto) 1 % (0-2.5); Eosinophils # (Auto) 0.1 Thou/mm3 (0.0-0.5); Eosinophils % (Auto) 2 % (0-10); Hematocrit 42.9 % (41.0-53.0); Hemoglobin 14.9 g/dL (13.5-16.0); Immature Granulocytes Auto 0.01 Thou/mm3 (0.00-0.00); Lymphocytes # (Auto) 2.1 Thou/mm3 (1.0-4.8); Lymphocytes % (Auto) 43 % (10-50); Mean Corpuscular HGB Conc 34.7 g/dl (31.0-37.0); Mean Corpuscular Hemoglobin 31.9 pg (25.0-35.0); Mean Corpuscular Volume 92 fL (80-100); Monocytes # (Auto) 0.4 Thou/mm3 (0.0-0.8); Monocytes % (Auto) 9 % (0-12); Neutrophils # (Auto) 2.2 Thou/mm3 (1.8-7.7); Neutrophils % (Auto) 45 % (37-80); Nucleated Red Blood Cell # 0.00 Thou/mm3 (0.00-0.00); Nucleated Red Blood Cell % 0 /100 WBC (0); Platelet Count 233 Thou/mm3 (140-440); RDW Standard Deviation 43.8 fL (35.1-43.9); Red Blood Count 4.67 Miln/mm3 (4.50-5.90); White Blood Count 4.9 Thou/mm3 (3.8-10.6)
[2024-12-01 12:54] LABS: Alanine Aminotransferase 21 U/L (10-49); Albumin, Serum 4.4 gm/dL (3.4-4.8); Albumin/Globulin Ratio 2.2 (1.2-2.2); Alkaline Phosphatase 54 U/L (46-116); Anion Gap 11 (7-16); Aspartate Amino Transferase 16 U/L (0-34); BUN/Creatinine Ratio 9 Ratio (12-20); Bilirubin,Total 0.7 mg/dL (0.3-1.2); Blood Urea Nitrogen 10 mg/dL (9-23); Calcium 9.7 mg/dL (8.3-10.6); Calcium (Corrected) 9.7 mg/dL (8.5-10.1); Carbon Dioxide 24.2 mMol/L (20.0-31.0); Chloride 103 mMol/L (98-107); Creatinine (Component) 1.1 mg/dL (0.6-1.3); Globulin 2.0 gm/dL (2.3-3.5); Glucose 117 mg/dL (74-106); Osmolality,Calculated 275 (275-295); Potassium 3.7 mMol/L (3.4-5.1); Sodium 138 mMol/L (136-145); Total Protein 6.4 gm/dL (5.7-8.2); eGFR > 60 See Note
[2024-12-01 12:56] LABS: Carcinoembryonic Antigen 1.9 ng/mL (0.0-5.0)
== END 2024-12-14 23:59 | disposition home or self-care (01) ==
LOC: SCTC 11:05
PROVIDERS: PCP Nurse Practitioner Family; Referring Provider Nurse Practitioner Family; Visit Provider Internal Medicine Hematology & Oncology
DX: Z51.11 Encounter for antineoplastic chemotherapy (principal); C20 Malignant neoplasm of rectum; C64.1 Malignant neoplasm of right kidney, except renal pelvis; C78.01 Secondary malignant neoplasm of right lung
CPT/HCPCS: 36591; 80053; 82378; 84443; 84481; 85025; 96366; 96367; 96368; 96409; 96411; 96416; A4216; J0640; J1100; J1453; J1642; J2405; J7040; J7050; J9190

== ENCOUNTER 2025-01-08 08:55 | Outpatient (RCR) | payer BC, SELFPAY ==
[2024-12-16 09:04] LABS: Basophils # (Auto) 0.1 Thou/mm3 (0.0-0.2); Basophils % (Auto) 2 % (0-2.5); Eosinophils # (Auto) 0.2 Thou/mm3 (0.0-0.5); Eosinophils % (Auto) 4 % (0-10); Hematocrit 42.5 % (41.0-53.0); Hemoglobin 14.8 g/dL (13.5-16.0); Immature Granulocytes Auto 0.04 Thou/mm3 (0.00-0.00); Lymphocytes # (Auto) 2.5 Thou/mm3 (1.0-4.8); Lymphocytes % (Auto) 39 % (10-50); Mean Corpuscular HGB Conc 34.8 g/dl (31.0-37.0); Mean Corpuscular Hemoglobin 31.2 pg (25.0-35.0); Mean Corpuscular Volume 90 fL (80-100); Monocytes # (Auto) 0.6 Thou/mm3 (0.0-0.8); Monocytes % (Auto) 10 % (0-12); Neutrophils # (Auto) 2.9 Thou/mm3 (1.8-7.7); Neutrophils % (Auto) 46 % (37-80); Nucleated Red Blood Cell # 0.00 Thou/mm3 (0.00-0.00); Nucleated Red Blood Cell % 0 /100 WBC (0); Platelet Count 229 Thou/mm3 (140-440); RDW Standard Deviation 43.1 fL (35.1-43.9); Red Blood Count 4.74 Miln/mm3 (4.50-5.90); White Blood Count 6.4 Thou/mm3 (3.8-10.6)
[2024-12-16 09:32] LABS: Alanine Aminotransferase 29 U/L (10-49); Albumin, Serum 4.4 gm/dL (3.4-4.8); Albumin/Globulin Ratio 2.3 (1.2-2.2); Alkaline Phosphatase 57 U/L (46-116); Anion Gap 10 (7-16); Aspartate Amino Transferase 19 U/L (0-34); BUN/Creatinine Ratio 13 Ratio (12-20); Bilirubin,Total 0.5 mg/dL (0.3-1.2); Blood Urea Nitrogen 14 mg/dL (9-23); Calcium 9.7 mg/dL (8.3-10.6); Calcium (Corrected) 9.7 mg/dL (8.5-10.1); Carbon Dioxide 24.6 mMol/L (20.0-31.0); Chloride 107 mMol/L (98-107); Creatinine (Component) 1.1 mg/dL (0.6-1.3); Globulin 1.9 gm/dL (2.3-3.5); Glucose 95 mg/dL (74-106); Osmolality,Calculated 283 (275-295); Potassium 3.8 mMol/L (3.4-5.1); Sodium 142 mMol/L (136-145); Total Protein 6.3 gm/dL (5.7-8.2); eGFR > 60 See Note
[2024-12-16 09:34] LABS: Carcinoembryonic Antigen 1.7 ng/mL (0.0-5.0)
--- NOTE | 2025-01-05 00:17 | CTCFLWUP_ITS ---
Patient: WEN CHRISTIAN : 1960 Page 5 of 5 FOLLOW UP NOTE DATE OF SERVICE: 12/31/2024 NAME: WEN CHRISTIAN ACCOUNT: [id number] : 1960 AGE: 64 INTERVAL HISTORY: Subjective: Patient has completed 3 treatments with 5-FU and wanted to see me before continuing further treatment. Patient wanted to know if he need to continue chemotherapy treatment as he is feeling very well at this time. He denies any side effects and have a lot of energy. Patient is worried that chemotherapy is harming his body. ONCOLOGY HISTORY: DIAGNOSIS: Malignant neoplasm of rectum [ICD10] C20 DATE OF DIAGNOSIS: 01/23/2024 adenocarcinoma of colon diagnosed on colonoscopy STAGE/TNM: T2 Nx M0(as no lymph nodes were seen by the surgeon which were normal and none were removed) TREATMENT HISTORY: Care?Plan Start?Date Cycle Day Intent Pembrolizumab?alone 09/22/2024 1 21 Palliative 5FU?and?Luecovorin 11/18/2024 1 14 Curative?(adjuvant) HISTORY OF PRESENT ILLNESS: 64-year-old male is here to establish care for his rectal cancer. Patient underwent a robotic right nephrectomy with Dr. Sy for tumor about 10 years ago. Underwent recent colonoscopy which showed numerous polyps largest 3 cm lesion in the rectum was biopsied only which showed high-grade dysplasia with possible intramucosal adenocarcinoma. Patient had a CT scan which showed no evidence of metastatic disease. Patient had a small cyst in the liver. MRI pelvis showed a lesion on the left lateral aspect of the distal rectum 3 cm from the sphincter read as T3. No enlarged or suspicious lymph nodes on the read but surgeons are few visible less than 5 mm few.Left lateral tumor with central ulceration. 0n ultraSUund majority seems T1, with perhaps slight areaiin the middle of T2 involvemmnt. LocatiOn is adjacent to coceyx below lst valve of Renteria on left lateral zspcct of rectal well, about 1 cm ab0ve upper border of levator. No suspicious lymph nodes and no evidence of T3 involvement. So proce eded with transanal TAMIS excision (full thickness). Some bleeding from posterior area controlled with ligasure. Defect left open to heal by secondary intention. The specimen displays a 2.5 x 2.2 cm fungating lesion with elewted edges. The tumor IS disrupted at the left/anterior aspect, and abuts the inked gmen margin near the proximal aspect. The specimen is serially sectioned from proximal to distal. and entirely submitted as follows}:DIAGNOSIS: (Veri?ed) E TRANSANAL acrsron or: RECTAL LESION MINIMALLY INVASIVE A. Recrosremoro COLON POLYPS (BIOPSY): - Hypemlastic polyp(8)- l B. RECTAL LESION (TRANSANAL EXCISION): - Imasive moderately to poody differentiated adenocarcinOma. an?sing from tubular adenoma. - The carcinoma focally inwdes the musculan's propria (p12). - Lymphomscular invasion is present (Small vessel and large vessel). - Pen?neural invasion is present. - Tumor budding score: lntemrediate (5-3). - Margins are negative for imesive carcinoma and adenoma. Closest margin to carcinoma is 2 mm from the green lateral inked margin (opposite to the left/anterior half. near proximal).COMMENT: 1 WW % lmmunohistochemical stains (block B4) (or mismatch repair proteins (MLH1. PMSZ. MSH2. MSHS) show intact n uclear expression. indicating a low likelihood o?microsatellite instability. Radiation oncology note--- Patient is a 63 -year-old gentleman initially followed in [place] for high-grade dysplasia in colonic adenoma, with numerous polyps removed, the larger 3 cm lesion in the rectum was biopsied which showed possible intramucosal adenocarcinoma. Was [place] [facility] [place] Ivy MD who underwent on February 27, 2024 excision of rectal tumor transanal endoscopic microsurgical approach including muscularis propria. Final path revealed invasive moderately to poorly differentiated adenocarcinoma arising from tubular adenoma carcinoma focally invading the musculus propria pT2. Lymphovascular invasion present tumor budding score intermediate margins negative for invasive carcinoma and adenoma. Mismatch repair proteins showed intact nuclear expression indicating low likelihood of microsatellite instability. Patient had preop CT scan 01/17/2024 which revealed few pulmonary nodules scar throughout lungs largest 1.1 x 0.9 cm, with no other suspicious areas in abdomen or pelvis. Mild nonspecific rectal wall thickening in the lower rectum with right kidney surgically absent. Spoke with Dr. Ivy today who recommended radiation therapy and chemo based on NCCN guidelines. OTHER MEDICAL HISTORY/CONDITIONS: HEART MURMUR SEASONAL ALLERGIES BRONCHITIS HERNIA NEPHRECTOMY FLU CHICKEN POX HAY FEVER EAR INFECTIONS ROTATOR CUFF HERNIA RIGHT NEPHRECTOMY RIGHT 8 YEARS AGO RIGHT EAR SX WITH DR ELDRIDGE FAMILY HISTORY: Father:?FATHER?BRAIN?CANCER Cancer History:?COLON CANCER DX 01/2024, LIP SX SQUAMOUS CELL YEARS AGO SOCIAL HISTORY: Occupational?History:?RETIRED [employer], [employer] Education?Level:?College Graduate, 2 year degree Marital?Status:? Tobacco?Pack?per?Day:?0 Tobacco?Use?Years:?40 ETOH Use:?[employer]IAL [employer]INKER [employer] Drug?Note:?DENIES Social?History?Note:?LIVES?WITH? MEDICATIONS: 1. Cialis - 5 mg As directed 2. Compazine - 5 mg 5 mg Daily 3. levocetirizine dihydrochloride - 5 mg Daily 4. lidocaine HCL - 2 6 10 cc Every 6 Hours 5. Maalox Advanced - 200-200-20 mg/5 mL 20 mL Daily 6. multivitamin - 1 Gum Daily 7. nystatin - 100,000 unit/mL 10 mL Daily 8. ondansetron - 8 mg 8 mg Daily 9. Singulair - As directed 10. Xyosted - Weekly Medications Last Reconciled by Annabelle Taylor MA on 12/31/2024 ALLERGIES: No Known Drug Allergies REVIEW OF SYSTEMS: A complete 14-point review of systems was performed and is negative except as noted in interval history. PHYSICAL EXAMINATION: VITAL SIGNS: Temperature?99, B/P?119/77, Oxygen?Saturation?95% Weight?219?lbs (Change?since?12/18/24:?-4.2?lbs) PAIN: 0 - No pain ECOG Performance Status: 0 - Asymptomatic and fully active GENERAL APPEARANCE: Appears well, in no apparent distress, appropriately interactive. HEENT: Normocephalic, no temporal wasting, normal conjunctiva, no scleral icterus, normal hearing, lips without lesions, neck normal range of motion. CARDIOVASCULAR: Not assessed. PULMONARY: Normal respiratory effort, no respiratory distress or use of accessory muscles, speaking in full sentences, no tachypnea. EXTREMITIES: No pedal edema or cyanosis. SKIN: Normal skin appearance. NEUROLOGIC: Alert and oriented x4. PSHYCHIATRIC: Appropriate affect, mood normal, behavior normal, intact thought and speech. Laboratory, Imaging, and Diagnostic Test Results - Biopsy of right lung nodule: Positive for carcinoma, consistent with metastasis from renal primary - Immunohistochemistry results: - Positive: Mahan-CK, RCC, CD10, Pax8 - Negative: TTF1, CK7, CK20, Melan-A, SOX10, NKX3.1 - CT scan (January 2024): - Right lun.9 cm nodule with adjacent small satellite nodule, speculations surrounding - Left upper lobe: Irregular 0.9 x 0.7 cm nodule - Right middle lobe: Subpleural triangular nodular opacity, possibly atelectasis - Right lower lobe: Solid non-calcified 0.9 x 0.7 cm nodule - PET scan: - 15 mm non-hypermetabolic mass noted - Netera test for rectal cancer: Negative LABORATORY DATA: I have personally reviewed and interpreted each of the patient?s relevant lab tests, abnormal findings are below: Date 12/01/24 12/16/24 ??WHITE?BLOOD?COUNT?(Thou/mm3) ? 6.4 ??RED?BLOOD?COUNT?(Miln/mm3) ? 4.74 ??HEMOGLOBIN?(gm/dl) ? 14.8 ??HEMATOCRIT?(%) ? 42.5 ??PLATELET?COUNT?(Thou/mm3) ? 229 ??NEUTROPHILS?%,?AUTO?(%) ? 46 ??LYMPH?%,?AUTO?(%) ? 39 ??NEUTROPHILS,?AUTO?(Thou/mm3) ? 2.9 ??GLUCOSE,RANDOM?(mg/dL) 117?H 95 ??BLOOD?UREA?NITROGEN?(mg/dL) 10 14 ??CREATININE?(mg/dL) 1.10 1.10 ??SODIUM?(mmol/L) 138 142 ??POTASSIUM?(mmol/L) 3.7 3.8 ??CHLORIDE?(mmol/L) 103 107 ??CrCl?(CandG)?(ml/min) 83.55 83.73 ??AST/SGOT?(Unit/L) 16 19 ??ALT/SGPT?(Unit/L) 21 29 ??ALKALINE?PHOSPHATASE?(Unit/L) 54 57 ??BILIRUBIN,?TOTAL?(mg/dL) 0.7 0.5 ??PROTEIN?TOTAL?(gm/dl) 6.4 6.3 ??ALBUMIN,?SERUM?(gm/dl) 4.4 4.4 ??GLOBULIN?(gm/dl) 2.0?L 1.9?L ??ALBUMIN/GLOBULIN?RATIO 2.2 2.3?H ??CALCIUM,?SERUM?(mg/dL) 9.7 9.7 ??CALCIUM?SERUM?(CORRECTED)?(mg/dL) 9.7 9.7 ??CEA?(O*)?(ng/ml) ? 1.7 ASSESSMENT/PLAN: Amado Smith, 64-year-old male with history of renal cell carcinoma s/p nephrectomy 12-15 years ago and recent rectal cancer s/p surgery, presents for follow-up of lung nodules discovered on recent imaging. Assessment and Plan: Amado Hopkins presents with stage 2 rectal cancer diagnosed in January and newly diagnosed stage 4 kidney cancer with lung metastases, seeking treatment options and management. Stage 2 Rectal Cancer Assessment: Patient was diagnosed with T2M0 rectal cancer in January. Initially planned for capecitabine treatment, but there was a high co-pay and patient was switched to 5-FU. Patient did not wanted to start treatment but started adjuvant therapy after his tumor marker was found to be getting elevated on naterra Patient finished the 3 treatments or 1-1/2 cycles Advised to continue treatment In adjuvant setting with 5 FU 6 months of of treatment is recommended. Patient is willing for 3 months of treatment and will continue Please advise patient to be scheduled NABILA stage 4 Kidney Cancer with Lung Metastases Assessment: Patient has been newly diagnosed with stage 4 kidney cancer with metastases to the lungs. The primary kidney tumor has already been surgically removed. Lung nodules were identified on CAT scan in the ER and confirmed to be metastatic renal cell carcinoma through biopsy. The lung nodules are currently stable. Plan: - Initiate immunotherapy with Keytruda (pembrolizumab) after completion of colon cancer treatment - Submit documentation to insurance company clarifying new kidney cancer diagnosis for Keytruda approval - Monitor lung nodules for progression - Obtain brain MRI to assess for potential metastases - Consult with [facility] doctor for second opinion - Share all relevant reports and imaging - Schedule follow-up to discuss immunotherapy timing and frequency options (every 3-4 weeks or every 6 weeks) Recent Hospitalization for Palpitations Assessment: Patient reports recent hospitalization due to palpitations. Evaluated in the ER but has not yet seen a resistor inspector for follow-up. Plan: - Submit referral to cardiology for evaluation ORDERS: Order # Description [id number] CBC + Comprehensive Metabolic Panel + CEA [id number] Lab Appointment [id number] RETURN TO CLINIC: I reviewed the diagnosis, prognosis, and recommended treatment/procedure options with the patient (and/or their legal sales representative wire rope), including the potential benefits, risks, side effects and alternative therapies. We also discussed the option of no treatment and the possibility of clinical trial participation, if applicable. All questions were addressed, and they demonstrated understanding. They provided informed consent to proceed with the proposed plan of care. BILLING AND COMPLIANCE: I reviewed external records from providers outside my specialty as summarized above. I spent a total of 50 minutes on this patient?s care on the day of their visit excluding time spent related to any billed procedures. This time includes time spent with the patient as well as time spent documenting in the medical record, reviewing patients records and tests, obtaining history, placing orders, communicating with other healthcare professionals, counseling the patient, family or caregiver, and/or care coordination for the diagnoses above. Electronically Signed by: {Object.Sanct_ID*PnP.NameFL@M}, {Object.Sanct_ID*PnP.Suffix@U} D: {Object.Sanct_Date} T: {Object.Sanct_Time} CC: PCP: Antonio Watt Referring: Wagner Contreras This document was completed utilizing speech recognition software. Grammatical errors, random word insertions, pronoun errors, and incomplete sentences are an occasional consequence of this system due to software limitations, ambient noise, and hardware issues. Any formal questions or concerns about the content, text or information contained within the body of this dictation should be directly addressed to the provider for clarification.
[2025-01-05 10:11] LABS: Basophils # (Auto) 0.2 Thou/mm3 (0.0-0.2); Basophils % (Auto) 2 % (0-2.5); Eosinophils # (Auto) 1.3 Thou/mm3 (0.0-0.5); Eosinophils % (Auto) 18 % (0-10); Hematocrit 45.6 % (41.0-53.0); Hemoglobin 15.6 g/dL (13.5-16.0); Immature Granulocytes Auto 0.07 Thou/mm3 (0.00-0.00); Lymphocytes # (Auto) 2.9 Thou/mm3 (1.0-4.8); Lymphocytes % (Auto) 41 % (10-50); Mean Corpuscular HGB Conc 34.2 g/dl (31.0-37.0); Mean Corpuscular Hemoglobin 31.8 pg (25.0-35.0); Mean Corpuscular Volume 93 fL (80-100); Monocytes # (Auto) 0.6 Thou/mm3 (0.0-0.8); Monocytes % (Auto) 9 % (0-12); Neutrophils # (Auto) 2.1 Thou/mm3 (1.8-7.7); Neutrophils % (Auto) 30 % (37-80); Nucleated Red Blood Cell # 0.00 Thou/mm3 (0.00-0.00); Nucleated Red Blood Cell % 0 /100 WBC (0); Platelet Count 219 Thou/mm3 (140-440); RDW Standard Deviation 50.0 fL (35.1-43.9); Red Blood Count 4.90 Miln/mm3 (4.50-5.90); White Blood Count 7.1 Thou/mm3 (3.8-10.6)
[2025-01-05 10:33] LABS: Alanine Aminotransferase 26 U/L (10-49); Albumin, Serum 4.5 gm/dL (3.4-4.8); Albumin/Globulin Ratio 2.1 (1.2-2.2); Alkaline Phosphatase 63 U/L (46-116); Anion Gap 8 (7-16); Aspartate Amino Transferase 19 U/L (0-34); BUN/Creatinine Ratio 8 Ratio (12-20); Bilirubin,Total 0.5 mg/dL (0.3-1.2); Blood Urea Nitrogen 10 mg/dL (9-23); Calcium 9.8 mg/dL (8.3-10.6); Calcium (Corrected) 9.8 mg/dL (8.5-10.1); Carbon Dioxide 24.9 mMol/L (20.0-31.0); Carcinoembryonic Antigen 1.9 ng/mL (0.0-5.0); Chloride 107 mMol/L (98-107); Creatinine (Component) 1.2 mg/dL (0.6-1.3); Globulin 2.1 gm/dL (2.3-3.5); Glucose 131 mg/dL (74-106); Osmolality,Calculated 280 (275-295); Potassium 3.6 mMol/L (3.4-5.1); Sodium 140 mMol/L (136-145); Total Protein 6.6 gm/dL (5.7-8.2); eGFR > 60 See Note
== END 2025-01-13 23:59 | disposition home or self-care (01) ==
LOC: SCTC 08:55
PROVIDERS: PCP Specialist; Referring Provider Specialist; Visit Provider Internal Medicine Hematology & Oncology
DX: Z51.11 Encounter for antineoplastic chemotherapy (principal); C20 Malignant neoplasm of rectum; C78.01 Secondary malignant neoplasm of right lung; Z85.528 Personal history of other malignant neoplasm of kidney; Z90.5 Acquired absence of kidney; R00.2 Palpitations
CPT/HCPCS: 36591; 80053; 82378; 84443; 85025; 96366; 96367; 96368; 96409; 96411; 96416; 99212; A4216; J0640; J1100; J1453; J1642; J2405; J3490; J7040; J7050; J9190; G0463

== ENCOUNTER 2025-01-22 09:55 | Outpatient (RCR) | payer BC, SELFPAY ==
[2025-01-19 16:08] LABS: Basophils # (Auto) 0.1 Thou/mm3 (0.0-0.2); Basophils % (Auto) 1 % (0-2.5); Eosinophils # (Auto) 0.2 Thou/mm3 (0.0-0.5); Eosinophils % (Auto) 3 % (0-10); Hematocrit 41.0 % (41.0-53.0); Hemoglobin 14.1 g/dL (13.5-16.0); Immature Granulocytes Auto 0.01 Thou/mm3 (0.00-0.00); Lymphocytes # (Auto) 1.9 Thou/mm3 (1.0-4.8); Lymphocytes % (Auto) 36 % (10-50); Mean Corpuscular HGB Conc 34.4 g/dl (31.0-37.0); Mean Corpuscular Hemoglobin 31.3 pg (25.0-35.0); Mean Corpuscular Volume 91 fL (80-100); Monocytes # (Auto) 0.5 Thou/mm3 (0.0-0.8); Monocytes % (Auto) 9 % (0-12); Neutrophils # (Auto) 2.7 Thou/mm3 (1.8-7.7); Neutrophils % (Auto) 51 % (37-80); Nucleated Red Blood Cell # 0.00 Thou/mm3 (0.00-0.00); Nucleated Red Blood Cell % 0 /100 WBC (0); Platelet Count 211 Thou/mm3 (140-440); RDW Standard Deviation 49.7 fL (35.1-43.9); Red Blood Count 4.50 Miln/mm3 (4.50-5.90); White Blood Count 5.3 Thou/mm3 (3.8-10.6)
[2025-01-19 16:31] LABS: Carcinoembryonic Antigen 2.1 ng/mL (0.0-5.0)
[2025-01-19 16:37] LABS: Alanine Aminotransferase 23 U/L (10-49); Albumin, Serum 4.2 gm/dL (3.4-4.8); Albumin/Globulin Ratio 2.1 (1.2-2.2); Alkaline Phosphatase 63 U/L (46-116); Anion Gap 11 (7-16); Aspartate Amino Transferase 18 U/L (0-34); BUN/Creatinine Ratio 8 Ratio (12-20); Bilirubin,Total 0.5 mg/dL (0.3-1.2); Blood Urea Nitrogen 9 mg/dL (9-23); Calcium 9.1 mg/dL (8.3-10.6); Calcium (Corrected) 9.1 mg/dL (8.5-10.1); Carbon Dioxide 25.8 mMol/L (20.0-31.0); Chloride 104 mMol/L (98-107); Creatinine (Component) 1.1 mg/dL (0.6-1.3); Globulin 2.0 gm/dL (2.3-3.5); Glucose 108 mg/dL (74-106); Osmolality,Calculated 280 (275-295); Potassium 3.5 mMol/L (3.4-5.1); Sodium 141 mMol/L (136-145); Total Protein 6.2 gm/dL (5.7-8.2); eGFR > 60 See Note
== END 2025-02-13 23:59 | disposition home or self-care (01) ==
LOC: SCTC 09:55
PROVIDERS: PCP Nurse Practitioner Family; Referring Provider Specialist; Visit Provider Internal Medicine Hematology & Oncology
DX: Z51.11 Encounter for antineoplastic chemotherapy (principal); C20 Malignant neoplasm of rectum; C64.1 Malignant neoplasm of right kidney, except renal pelvis; C78.01 Secondary malignant neoplasm of right lung
CPT/HCPCS: 36591; 80053; 82378; 85025; 96366; 96367; 96368; 96409; 96411; 96416; A4216; J0640; J1100; J1434; J1642; J2405; J3490; J7040; J7050; J9190